=== PATIENT | male | born 1965 | race Caucasian/White ===

== ENCOUNTER 2024-07-31 14:02 | Emergency (ER) | payer MEDICARE, SELFPAY ==
[2024-07-31] VITALS (11 sets, daily range): BP systolic 149–161; BP diastolic 71–78; PULSE 72–80; RESP 16–18; TEMP 36.3–36.7; O2SAT 63–100
--- NOTE | ~2024-07-31 | CT_ITS ---
CT brain wo con Ordering provider: Bear Preciado MD History: 58 years Male with . Fall, Posterior head injury, Headache, Neck pain . Comparison: January 28, 2013 Technique: CT of the head without contrast. Radiation reduction technique utilized.The dose-length pr oduct was 756.67 mGy-cm. FINDINGS: BRAIN PARENCHYMA AND CSF SPACES: Mild leukoaraiosis and diffuse cortical atrophy. Mild atheromatous d isease. As No midline shift, mass effect or hemorrhage. The brain parenchyma and CSF spaces are othe rwise normal. VISUALIZED PARANASAL SINUSES: Bilateral frontal, maxillary and ethmoid sinus disease. Otherwise, Well aerated. MASTOIDS: Well aerated. BONES: The bones appear intact. SOFT TISSUES: Visualized nasopharynx is normal. Superficial soft tissues are normal. IMPRESSION: No acute intracranial findings. Reviewed, dictated and finalized at location A.
--- NOTE | ~2024-07-31 | CT_ITS ---
History: Fall with neck pain PROCEDURE: CT cervical spine without intravenous contrast. COMPARISON: None TECHNIQUE: Multiple contiguous axial images of the cervical spine were performed without the administration of i ntravenous contrast. DLP: 525 mGy-cm FINDINGS: Preservation of the normal curvature of the cervical spine is identified. Degenerative disease is identified with osteophyte formation and ossification of the posterior longit udinal ligament. No acute fractures are present. The bilateral lung apices are unremarkable. No soft tissue abnormality is present. The airway is patent. Impression: Mild degenerative disease, without acute fracture. Reviewed, dictated and finalized at location A. Impression: Mild degenerative disease, without acute fracture.
--- NOTE | ~2024-07-31 | XR_ITS ---
EXAMINATION: XR chest 1V portable 07/31/2024 15:08 INDICATION: Status post fall. Chest pain. PROCEDURE: AP portable chest COMPARISON: No prior studies for comparison. FINDINGS: The lungs are clear. Cardiomegaly. There are no pleural effusions. There is no pneumothora x suspected. IMPRESSION: 1: NO ACUTE CARDIOPULMONARY DISEASE. Reviewed, dictated and finalized at location A.
--- NOTE | 2024-07-31 14:23 | ECG_ITS ---
Test Date: 2024-07-31 14:39:56 Measurements Intervals [place] Rate: 75 P: 45 CA: 134 QRS: -78 QRSD: 164 T: 57 QT: 436 QTc: 489 Interpretive Statements SINUS RHYTHM RIGHT BUNDLE BRANCH BLOCK [120+ ms QRS DURATION, UPRIGHT V1, 40+ ms S IN I/aVL/V4/V5/V6] LEFT ANTERIOR FASCICULAR BLOCK [QRS AXIS <= -45, QR IN I, RS IN II] INFERIOR MYOCARDIAL INFARCTION , OF INDETERMINATE AGE [40+ ms Q WAVE AND/OR ST/T ABNORMALITY IN II/aVF] No previous ECG available for comparison Electronically Signed On 08-01-2024 11:46:49 CDT by Alecia Moon M.D.
--- NOTE | 2024-07-31 14:27 | ED_ITS ---
HPI - Fall General Chief Complaint: Fall Stated Complaint: fall Time Seen by Provider: 07/31/24 14:22 Source: patient and EMS Mode of arrival: EMS Limitations: no limitations History of Present Illness HPI Narrative: Patient is a 58-year-old male with obesity and lift assist was found on the floor at home after 8 hours per the patient and his family. Patient accidentally lost his balance using his walker and fell onto his back and hit his head going down to the floor. He is on Eliquis. No other injuries. No other complaints at this time. He normally pivots with his walker to get around. MD complaint: fall Onset (ago): hour(s) ( Eight) Fall from: standing Fall witnessed: no Place fall occurred: home Loss of consciousness: none Prolonged down time: yes and hour(s) ( 8) Symptoms prior to fall: none Context: tripped/slipped and history of frequent falls Location of injury: head and neck Severity: mild Severity scale (1-10): 1 Quality: dull Associated symptoms (after fall): unable to walk ( baseline) Related Data Allergies Allergy/AdvReac Type Severity Reaction Status Date / Time Penicillins Allergy Severe Anaphylaxis Verified 07/31/24 14:26 strawberry Allergy Severe Anaphylaxis Verified 07/31/24 14:26 Review of Systems 2 Review of Systems: All systems reviewed & are unremarkable except as noted in HPI and below Constitutional: Constitutional: Reports no additional constitutional complaints Eyes: Eyes: Reports no additional eye complaints ENT: Reports system reviewed and no additional complaints, except as documented Cardiovascular: Cardiovascular: Reports no additional cardiovascular complaints Respiratory: Respiratory: Reports no additional respiratory complaints Gastrointestinal: Gastrointestinal: Reports no additional gastrointestinal complaints Genitourinary: Genitourinary: Reports no additional male genitourinary complaints Musculoskeletal: Musculoskeletal: Reports no additional musculoskeletal complaints Integumentary/Breasts: Skin/Breast: Reports system reviewed and no additional complaints, except as docu Neurologic: Reports system reviewed and no additional complaints, except as documented Psychiatric: Psychiatric: Reports no additional psychiatric complaints Endocrine: Endocrine: Reports no additional endocrine complaints Hematologic/Lymphatic: Hematologic/Lymphatic: Reports no additional hematologic/lymphatic complaints Allergic/Immunologic: Allergic/Immunologic: Reports no additional allergic/immunologic complaints Exam 2 Const: General: healthy appearing Nutritional Appearance: well nourished and obese Orientation/consciousness: patient oriented x3 Other: patient presented to the emergency room via EMS with lots of urine on his body secondary to laying on the ground for 8 hours and soiling himself HENMT: Head: normal to inspection Ears: external ears normal F melanie/Nose/Sinus: Normal external nose present Face and sinus: normal facial exam Eyes: Conjunctivae: conjunctivae normal Pupils: Equal, round and reactive pupils present EOM: EOMs intact bilaterally Neck: Neck: normal visual inspection Chest: Chest palpation & inspection: normal inspection of the chest Resp: Effort & Inspection: normal respiratory effort and not labored A uscultation: clear to auscultation bilaterally and no crackles Cardio: Rate: regular rate Rhythm: regular rhythm Heart sounds: no murmurs GI: Inspection: non-distended GI Palp: Yes Soft to palpation and No Tenderness to palpation present (GI) Auscultation: normal bowel sounds : General: Yes bladder normal to palpation Back/Spine/Pelvis: Back: no CVA tenderness Skin: General skin exam: normal color Rashes: no rashes Wounds: no wounds Other: patient has large bilateral legs and ankles due to chronic edema and has bandages on them to stop pulling of fluids Neuro: General: patient oriented x3 Cranial nerves: Yes Nystagmus not present Speech: normal speech Extrem: General: normal to inspection Psych: Mental Status: mental status grossly normal Affect: normal affect Attitude: cooperative Course Vital Signs Vital signs: Vital Signs Temperature 36.3 C L 07/31/24 14:02 Pulse Rate 80 07/31/24 14:02 Respiratory Rate 18 07/31/24 14:02 Blood Pressure 160/71 H 07/31/24 14:02 Pulse Oximetry 100 07/31/24 14:02 Oxygen Delivery Room Air 07/31/24 14:02 Temperature 36.3 C L 07/31/24 14:02 Pulse Rate 76 07/31/24 15:15 Respiratory Rate 17 07/31/24 15:15 Blood Pressure 149/76 H 07/31/24 15:15 Pulse Oximetry 100 07/31/24 15:16 Oxygen Delivery Room Air 07/31/24 14:02 MDM - Fall MDM Narrative Medical decision making narrative: patient is a 58-year-old male with a ground level fall due to loss of balance here for evaluation per his family. He did hit his head on the way down to the floor and he is on Eliquis. We will check labs to include CPK and some CT scans for reassurance. Lab Data Attestation: I reviewed the patient's lab results. 07/31/24 14:36 07/31/24 14:36 Labs: Lab Results 07/31/24 07/31/24 Range/Units 14:26 14:36 WBC 10.6 (4.8-10.8) K/mm3 RBC 4.21 L (4.70-6.10) M/mm3 Hgb 12.7 L (14.0-18.0) g/dL Hct 38.1 L (40.0-54.0) % MCV 90.5 (78.0-102.0) fL MCH 30.2 (27.0-31.0) pg MCHC 33.3 (32-36) g/dL RDW 14.0 (11.6-14.4) % Plt Count 258 (150-420) K/mm3 MPV 10.0 (8.7-11.0) fl Immature Gran % (Auto) 0.7 H (0.0-0.0) % Neut % (Auto) 84.0 H (50.0-70.0) % Lymph % (Auto) 9.0 L (18.0-42.0) % Spalding % (Auto) 4.9 (2.0-11.0) % Eos % (Auto) 0.9 L (1.0-6.0) % Baso % (Auto) 0.5 (0.0-1.0) % Lymph # (Auto) 0.95 L (1.10-4.50) K/mm3 Spalding # (Auto) 0.52 (0.10-0.90) K/mm3 Eos # (Auto) 0.10 (0.02-0.50) K/mm3 Baso # (Auto) 0.05 (0.00-0.10) K/mm3 Abs Immat Gran (auto) 0.07 H (0.00-0.00) K/mm3 Absolute Neuts (auto) 8.92 H (1.70-7.20) K/mm3 Absolute Nucleated RBC 0.00 (0.00-0.00) K/mm3 Nucleated RBC % 0.0 (0-0.0) % Sodium 139 (136-145) mmol/L Potassium 4.2 (3.5-5.1) mmol/L Chloride 105 (98-108) mmol/L Carbon Dioxide 24 (21-32) mmol/L Anion Gap 10 (4-12) mmol/L BUN 25 H (7-18) mg/dL Creatinine 1.15 (0.70-1.30) mg/dL Estim Creat Clear Calc 109 ml/min Estimated GFR > 60 (59 - ) Glucose 232 H (70-99) mg/dL Calculated Osmolality 299 H (285-295) mOsm/kg Calcium 8.9 (8.5-10.1) mg/dL Magnesium 1.8 (1.8-2.4) mg/dL Total Bilirubin 0.4 (0.00-1.00) mg/dL AST < 10 L (15-37) U/L ALT 13 L (16-63) U/L Alkaline Phosphatase 98 (46-116) U/L Total Creatine Kinase 106 (39-308) U/L Troponin I 12.7 (0.00-60.4) ng/L Total Protein 8.1 (6.4-8.2) g/dL Albumin 3.5 (3.4-5.0) g/dL Urine Color Light yellow (Yellow) Urine Appearance Clear (Clear) Urine pH 6.0 (5.0-8.0) Ur Specific Garita 1.025 H (1.010-1.020) Urine Protein Negative (Negative) Urine Glucose (UA) 3+ H (Negative) Urine Ketones Negative (Negative) Ur Blood (Man) Negative (Negative) Urine Nitrate Negative (Negative) Urine Bilirubin Negative (Negative) Urine Urobilinogen 0.2 (0.2-1.0) mg/dL Leukocyte Esterase Rfl Negative (Negative) KWABENA/UL Imaging Data Attestation: I personally reviewed and interpreted this imaging study as follows: ECG Data EKG #1: Attestation: I personally reviewed and interpreted this ECG as follows: ECG completion date: 07/31/24 ECG completion time: 14:59 EKG Interpretation: normal rate, sinus rhythm, no ectopy, non-specific ST changes, widened QRS, RBBB and left axis Discharge Plan Discharge Clinical Impression: Fall, Head injury Patient Disposition: Home Condition: Stable Instructions: Head Injury (DC), Fall Prevention (ED) Patient Language: Grenadian Follow-up/Referrals: Erick Albert M.D. [Primary Care Provider] - Time of Disposition: 15:33
[2024-07-31 14:47] LABS: Basophils Absolute Auto 0.05 K/mm3 (0.00-0.10); Basophils Percent Auto 0.5 % (0.0-1.0); Eosinophils Percent Auto 0.9 % (1.0-6.0); Hematocrit 38.1 % (40.0-54.0); Hemoglobin 12.7 g/dL (14.0-18.0); Immature Granulocyte Absolute 0.07 K/mm3 (0.00-0.00); Immature Granulocyte Percent A 0.7 % (0.0-0.0); Lymphocytes Absolute Auto 0.95 K/mm3 (1.10-4.50); Mean Corpuscular HGB Conc 33.3 g/dL (32-36); Mean Corpuscular Hemoglobin 30.2 pg (27.0-31.0); Mean Corpuscular Volume 90.5 fL (78.0-102.0); Monocytes Absolute Auto 0.52 K/mm3 (0.10-0.90); Monocytes Percent Auto 4.9 % (2.0-11.0); Neutrophils Absolute Auto 8.92 K/mm3 (1.70-7.20); Platelet Count Result 258 K/mm3 (150-420); Red Blood Count 4.21 M/mm3 (4.70-6.10); White Blood Count 10.6 K/mm3 (4.8-10.8)
[2024-07-31 15:06] LABS: Alanine Aminotransferase 13 U/L (16-63); Albumin Level 3.5 g/dL (3.4-5.0); Alkaline Phosphatase 98 U/L (46-116); Anion Gap 10 mmol/L (4-12); Aspartate Amino Transferase < 10 U/L (15-37); Bilirubin,Total 0.4 mg/dL (0.00-1.00); Blood Urea Nitrogen 25 mg/dL (7-18); Calcium 8.9 mg/dL (8.5-10.1); Carbon Dioxide 24 mmol/L (21-32); Chloride 105 mmol/L (98-108); Creatine Kinase 106 U/L (39-308); Estimated CRCL calculation 109 ml/min; Estimated Glomerular Filt Rate > 60; Glucose 232 mg/dL (70-99); Osmolality Calculated 299 mOsm/kg (285-295); Potassium 4.2 mmol/L (3.5-5.1); Sodium 139 mmol/L (136-145); Total Protein 8.1 g/dL (6.4-8.2)
[2024-07-31 15:07] LABS: Magnesium 1.8 mg/dL (1.8-2.4); Troponin I 12.7 ng/L (0.00-60.4)
[2024-07-31 15:16] LABS: Add Urine Microscopic? NO; Appearance Urine Clear (Clear); Bilirubin Urine Negative (Negative); Blood Urine Negative (Negative); Color Urine Light Yellow (Yellow); Glucose Urine UA 3+ (Negative); Ketones Urine Negative (Negative); Leukocyte Esterase Ur Negative LEU/UL (Negative); Nitrate Urine Negative (Negative); Protein Urine Negative (Negative); Specific Grav Ur 1.025 (1.010-1.020); Urobilinogen Urine 0.2 mg/dL (0.2-1.0)
--- OUTSIDE RECORDS SUMMARY | 2024-08-01 14:22 | XMS_ITS | Encounter Summary ---
Author Organization [facility] Address [address] [place] [address] Phone Care Team Providers Care It Systems Analyst Name Role Phone Erick Albert MD Primary Care Provider [phone] Reason for Referral * Radiology Services (Routine) - Closed Specialty Diagnoses / Procedures Referred By Julissa jarrett Referred To Contact Radiology Diagnoses Abnormal brain MRI Procedures MRI C-SPINE W/WO CONTRAST Justin Mendieta MD Referral ID Status Reason Start Date Expiration Date Visits Re quested Visits Authorized [id number] Closed 04/11/2020 1 1 TRUCTION SUPERINTENDENT * Radiology Services (Routine) - Closed Specialty Diagnoses / Procedures Referred By Julissa jarrett Referred To Contact Radiology Diagnoses Abnormal brain MRI Procedures MRI BRAIN W/WO CONTRAST Justin Mendieta MD Referral ID Status Reason Start Date Expiration Date Visits Re quested Visits Authorized [id number] Closed 04/11/2020 1 1 TRUCTION SUPERINTENDENT Encounter Details Date Type Department Care Team (Latest Contact Info) Description 04/11/2020 Transcribe Orders [facility] Central Scheduling [address] [place] [address] Justin Mendieta MD Abnormal brain MRI (Primary Dx) Social History Tobacco Use Types Packs/Day Years Used Date Smoking Tobacco: Never Assessed Sex and Gender Information Value Date Recorded Sex Assigned at Not on file 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 Gender Identity Not on file Sexual Orientation Not on file documented as of this encounter Plan of Treatment Scheduled Orders Name Type Priority Associated Diagnoses Orde r Schedule MRI BRAIN W/WO CONTRAST Imaging Routine Abnormal brain MRI Expected: 04/11/2020, Expires: 04/11/2021 MRI C-SPINE W/WO CONTRAST Imaging Routine Abnormal brain MRI Expected: 04/11/2020, Expires: 04/11/2021 documented as of this encounter Visit Diagnoses Diagnosis Abnormal brain MRI- Primary Nonspecific (abnormal) findings on radiological and other examination of skull and head documented in this encounter Care Teams It Systems Analyst Relationship Specialty Start Date End Date Erick Albert MD [address] [place] [address] PCP - General Family Medicine 05/06/20 documented as of this encounter
--- OUTSIDE RECORDS SUMMARY | 2024-08-01 14:22 | XMS_ITS | Clinical Summary ---
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 Gender Identity Not on file Sexual Orientation Not on file Last Filed Vital Signs Vital Sign Reading Time Taken Comments Blood Pressure - - Pulse - - Temperature - - Respiratory Rate - - Oxygen Saturation - - Inhaled Oxygen Concentration - - Weight 215.5 kg (475 lb) 01/05/2021 12:27 PM CDT Height 180.3 cm (5' 11 ) 01/05/2021 12:27 PM CDT Body Mass Index 66.25 01/05/2021 12:27 PM CDT Plan of Treatment Health Maintenance Due Date Last Done Comments Hepatitis C Virus (HCV) Screening 1965 TdaP Immunization 1965 Colonoscopy 12/05/2011 Colorectal Cancer Screening 12/05/2011 Cologuard 2016 Immunochemical Fecal Occult Blood 2016 Pneumococcal Immunization (5 0+ years) (1 of 1 - PCV) 2016 Zoster Immunization (1 of 2) 2016 Influenza Immunization (#1) 2023 03/01/2017 SARS-COV-2 Immunization (3 - season) 2023 08/09/2020, 07/12/2020 Respiratory Syncytial Virus (RSV) Immunization (Adult) (1 - 1-dose 75+ series) 2041 Hepatitis B Immunization Completed 007, 06/05/2006, 04/11/2006 Meningococcal Immunization (ACWY) Aged Out No longer eligible b ased on patient's age to complete this topic Rotavirus Immunization Aged Out No lo nger eligible based on patient's age to complete this topic Insurance MEDICARE C AETNA Care Teams Gym Teacher Relationship Specialty Start Date End Date Erick Albert MD [facility] [place] [address] PCP - General Family Medicine 05/06/20
--- OUTSIDE RECORDS SUMMARY | 2024-08-01 14:22 | XMS_ITS ---
Author Organization [facility] Address [address] [place] [address] Care Team Providers Care Manual Control Auger Press Operator Name Role Phone JUAN MICHAELS Unavailable [phone] Erick Albert Unavailable Unavailable Encounters Encounter Location Date Provider Diagnosis [facility] [address] [place] [address] 10/23/2023 JUAN MICHAELS Plan Of Treatment No Information Progress Notes * CARLOS VIVIAN RDOB: [birth year] (58 yo M)Acc No.[id number]:10/23/2023 Patient: VIVIAN GARCIA Provider: Shmuel Michaels DPM :1965 A ge:57 Y S ex:Male Date:10/23/2023 Address:[address] Subjective: * Chief Complaints: * * Medical History: Objective: * Vitals: Assessment: Plan: * Treatment: * Billing Information: * Visit Code: * Procedure Codes: * Electronic signature of ANNALEE MICHAELS DPM on 08/01/2024 at 02:22 PM CDT Sign off status: Pending * Provider: Shmuel Michaels DPM Date: 10/23/2023 Generated for Zulay gutierrez/Bay/Arlen on: 08/01/2024 02:22 PM CDT
--- OUTSIDE RECORDS SUMMARY | 2024-08-01 14:22 | XMS_ITS | Encounter Summary ---
Author Organization [facility] Address [facility] [place] [address] Care Team Providers Care Tar And Ammonia Pump Operator Name Role Phone Erick Albert MD Primary Care Provider [phone] Phillip Goldman MD Unavailable Kesha Doyle INDUSTRIAL TRACTOR DRIVER Unavailable [phone] Donny Olsen DPM Unavailable [phone] Encounter Details Date Type Department Care Team (Late st Contact Info) Description 05/25/2019 Abstract [facility] [address] [place] [address] Abstract, Doc [facility] Social History Tobacco Use Types Packs/Day Years Used Date Smoking Tobacco: Never Smokeless Tobacco: Never Alcohol Use Standard Drinks/Week Comments No 0 (1 standard drink = 0.6 oz pur e alcohol) Sex and Gender Information Value Date Recorded Sex Assigned at Not on file Legal Sex Male 7:22 PM CDT Gender Identity Not on file Sexual Orientation Not on file Occupation Industry Job Start Date Job End Date unemployed Not on file Not on file Not on file documented as of this encounter Plan of Treatment Not on file documented as of this encounter Visit Diagnoses Not on filedocumented in this encounter Additional Health Concerns Infection Onset Date Last Indicated Resolved Time COVID-19 Rule Out 08/31/2020 08/31/2020 08/31/2020 12:40 AM CDT COVID-19 Rule Out 08/31/2020 08/31/2020 08/31/2020 5:11 PM CDT documented as of this encounter Care Teams Tar And Ammonia Pump Operator Relationship Specialty Start Date End Date Erick Albert MD [address] [place] [id number] PCP - General FAMILY PRACTICE 12/12/17 Phillip Goldman MD [address] [place] [address] Vascular/Ware Dresser INTERNAL MEDICINE 12/12/17 Kesha Doyle, INDUSTRIAL TRACTOR DRIVER [facility] [place] [address] Nurse Practitioner Family 05/22/19 Donny Olsen DPM [address] [place] [address] Surgeon PODIATRY 07/27/19 documented as of this encounter
--- OUTSIDE RECORDS SUMMARY | 2024-08-01 14:22 | XMS_ITS ---
Author Organization [facility] Address [address] [place] [address] Care Team Providers Care Director Agricultural Services Name Role Phone JUAN MICHAELS Unavailable [phone] Erick Albert Unavailable Unavailable Encounters Encounter Location Date Provider Diagnosis [facility] [address] [place] [address] 06/12/2024 JUAN MICHAELS Plan Of Treatment No Information Progress Notes * CARLOS VIVIAN RDOB: [birth year] (58 yo M)Acc No.[id number]:06/12/2024 Patient: VIVIAN GARCIA Provider: Shmuel Michaels DPM :1965 A ge:58 Y S ex:Male Date:06/12/2024 Address:[address] Subjective: * Chief Complaints: * * Medical History: Objective: * Vitals: Assessment: Plan: * Treatment: * Billing Information: * Visit Code: * Procedure Codes: * Electronic signature of ANNALEE MICHAELS DPM on 08/01/2024 at 02:22 PM CDT Sign off status: Pending * Provider: Shmuel Michaels DPM Date: 06/12/2024 Generated for Zulay gutierrez/Bay/Arlen on: 08/01/2024 02:22 PM CDT
--- OUTSIDE RECORDS SUMMARY | 2024-08-01 14:22 | XMS_ITS | Clinical Summary ---
Author Organization Unknown Care Team Providers Care Sugar Reprocess Operator Head Name Role Phone KIERA SELLERS, AB Unavailable Unavailable JOSE C ARREDONDO COUNSELOR, DAHLIA Unavailable Unavailable AC REGISTERED NURSE, ABBEY Unavailable Unavailable IRIS REGISTERED NURSE, ALICIA Unavailable Unavailable Payers Payer Name Policy Type Policy Number Effective Date Expira tion Date [employer] MEDICARE ADVANTAGE - EPISODIC Problems Condition Name Condition Details Condition Category Status Onset Date Resolution Date Last Treatment Date Treating Clinician Comments TYPE 2 DIABETES MELLITUS W DIABETIC CHRONIC KIDNEY DISEASE Active 04-01 00:00: 00 HYPERTENSIVE CHRONIC KIDNEY DISEASE W STG 1-4/UNSP CHR KDNY Active 2023-04 00:00: 00 CHRONIC KIDNEY DISEASE, UNSPECIFIED Active 04-01 00:00: 00 VENTRICULAR TACHYCARDIA, UNSPECIFIED Active 04-01 00:00: 00 DEPRESSION, UNSPECIFIED Active 04-01 00:00: 00 OLD MYOCARDIAL INFARCTION Active 04-01 00:00: 00 CHRONIC OBSTRUCTIVE PULMONARY DISEASE, UNSPECIFIED Active 04-01 00:00: 00 OBSTRUCTIVE SLEEP APNEA (ADULT) (PEDIATRIC) Active 04-01 00:00: 00 TESTICULAR HYPOFUNCTION Active 04-01 00:00: 00 HYPERLIPIDEM IA, UNSPECIFIED Active 04-01 00:00: 00 ACTIVATED PROTEIN C RESISTANCE Active 04-01 00:00: 00 UNSPECIFIED OSTEOARTHRIT IS, UNSPECIFIED SITE Active 04-01 00:00: 00 MORBID (SEVERE) OBESITY DUE TO EXCESS CALORIES Active 04-01 00:00: 00 BODY MASS INDEX [BMI] 50.0-59.9, ADULT Active 04-01 00:00: 00 GASTRO-ESOPH AGEAL REFLUX DISEASE WITHOUT ESOPHAGITIS Active 04-01 00:00: 00 HYPOMAGNESEM IA Active 04-01 00:00: 00 OTHER PULMONARY EMBOLISM WITH ACUTE COR PULMONALE Active 04-01 00:00: 00 PERSONAL HISTORY OF OTHER VENOUS THROMBOSIS AND EMBOLISM Active 04-01 00:00: 00 CUSTODIAL (CURRENT) USE OF NON-STEROIDA L NON-INFLAM (NSAID) Active 04-01 00:00: 00 CUSTODIAL (CURRENT) USE OF ANTICOAGULAN TS Active 04-01 00:00: 00 CUSTODIAL (CURRENT) USE OF INSULIN Active 04-01 00:00: 00 INTERVENTIONAL NEURORADIOLOGIST (CURRENT) USE OF ORAL HYPOGLYCEMIC DRUGS Active 04-01 00:00: 00 LNG TRM (CRNT) USE INJECTABLE NON-INSULIN ANTIDIABETIC DRUGS Active 04-01 00:00: 00 HISTORY OF FALLING Active 04-01 00:00: 00 Allergies, Adverse Reactions, Alerts Allergy Name Allergy Type Status Severity Reaction(s) Onset Date Inactive Date Treating Clinician Comments PENICILLINS Propensity to adverse reactions Active 2023-04 14:46: 20 STRAWBERRY Propensity to adverse reactions Active 2023-04 14:46: 29 Medications Ordered Medication Name Filled Medication Name Start Date Stop Date Current Medication? Ordering Clinician Indication Dosage Frequency Signature (SIG) Comments Components atorvastati n 80 mg tablet 2023-04 00:00: 00 Yes [id number] HIGH CHOLESTEROL 1 tablet AT BEDTIME 1 tablet AT BEDTIME (route: oral) Med Classific ation: Cardiovas cular Therapy Agents buspirone 10 mg tablet 2023-04 00:00: 00 06-29 23:59 :00 No [id number] MOOD 2 tablet TWICE DAILY 2 tablet TWICE DAILY (route: oral) Med Classific ation: Central Nervous System Agents Eliquis 5 mg tablet 2023-04 00:00: 00 Yes [id number] BLOOD CLOT PREVENTION 1 tablet TWICE DAILY 1 tablet TWICE DAILY (route: oral) Med Classific ation: Hematolog ical Agents insulin lispro (U-100) 100 unit/mL subcutaneou s pen 2023-04 00:00: 00 06-29 23:59 :00 No [id number] DIABETES MELLITUS 70 unit TWICE DAILY 70 unit TWICE DAILY (route: subcutaneo us) Med Classific ation: Endocrine lisinopril 10 mg tablet 2023-04 00:00: 00 06-29 23:59 :00 No [id number] HIGH BLOOD PRESSURE 1 tablet ONCE DAILY 1 tablet ONCE DAILY (route: oral) Med Classific ation: Cardiovas cular Therapy Agents magnesium 250 mg tablet 2023-04 00:00: 00 Yes [id number] SUPPLEMENT 1 tablet ONCE DAILY 1 tablet ONCE DAILY (route: oral) Med Classific ation: Electroly te Balance-N utritiona l Products metformin 1,000 mg tablet 2023-04 00:00: 00 Yes [id number] DIABETES MELLTUS 1 tablet TWICE DAILY 1 tablet TWICE DAILY (route: oral) Med Classific ation: Endocrine Nystop 100,000 unit/gram topical powder 2023-04 00:00: 00 Yes [id number] GAULDING Per instruc tions TWICE DAILY Per instructio ns TWICE DAILY (route: topical) Med Classific ation: Dermatolo gical paroxetine 20 mg tablet 2023-04 00:00: 00 Yes [id number] MOOD 1 tablet ONCE DAILY 1 tablet ONCE DAILY (route: oral) Med Classific ation: Central Nervous System Agents Pepcid 20 mg tablet 2023-04 00:00: 00 Yes [id number] HEART BURN 1 tablet ONCE DAILY 1 tablet ONCE DAILY (route: oral) Med Classific ation: Gastroint estinal Therapy Agents topiramate 25 mg tablet 2023-04 00:00: 00 Yes [id number] HEADACHES 4 tablet TWICE DAILY 4 tablet TWICE DAILY (route: oral) Med Classific ation: Central Nervous System Agents venlafaxine 37.5 mg tablet 2023-04 00:00: 00 Yes [id number] MOOD 1 tablet ONCE DAILY 1 tablet ONCE DAILY (route: oral) Med Classific ation: Central Nervous System Agents Vitamin D2 1,250 mcg (50,000 unit) capsule 2023-04 00:00: 00 Yes [id number] VITAMIN D DEFICIENCY 1 capsule ONCE DAILY 1 capsule ONCE DAILY (route: oral) Med Classific ation: Electroly te Balance-N utritiona l Products amlodipine 2.5 mg tablet 2-11 00:00: 00 06-29 23:59 :00 No [id number] HYPERTENSIO N 1 tablet ONCE DAILY 1 tablet ONCE DAILY (route: oral) Med Classific ation: Cardiovas cular Therapy Agents cephalexin 500 mg capsule 2-26 00:00: 00 06-03 23:59 :00 No [id number] LEG INFECTION 2 capsule 4 TIMES DAILY 2 capsule 4 TIMES DAILY (route: oral) Med Classific ation: Anti-Infe ctive Agents amlodipine 5 mg tablet 07-01 00:00: 00 Yes [id number] HIGH BLOOD PRESSURE 1 tablet ONCE DAILY 1 tablet ONCE DAILY (route: oral) Med Classific ation: Cardiovas cular Therapy Agents buspirone 30 mg tablet 07-01 00:00: 00 Yes [id number] DEPRESSION 1 tablet TWICE DAILY 1 tablet TWICE DAILY (route: oral) Med Classific ation: Central Nervous System Agents cyclobenzap rine 10 mg tablet 07-01 00:00: 00 Yes [id number] MUSCLE SPASMS 1 tablet 3 TIMES DAILY 1 tablet 3 TIMES DAILY (route: oral) Med Classific ation: Locomotor System lisinopril 20 mg tablet 07-01 00:00: 00 Yes [id number] HIGH BLOOD PRESSURE 1 tablet ONCE DAILY 1 tablet ONCE DAILY (route: oral) Med Classific ation: Cardiovas cular Therapy Agents meloxicam 15 mg tablet 07-01 00:00: 00 Yes [id number] JOINT PAIN 1 tablet ONCE DAILY 1 tablet ONCE DAILY (route: oral) Med Classific ation: Analgesic , Anti-infl ammatory or Antipyret ic Novolog FlexPen U-100 Insulin aspart 100 unit/mL (3 mL) subcutaneou s 07-01 00:00: 00 Yes [id number] DIABETES 70 unit TWICE DAILY 70 unit TWICE DAILY (route: subcutaneo us) Med Classific ation: Endocrine Ozempic 0.25 mg or 0.5 mg (2 mg/3 mL) subcutaneou s pen injector 07-01 00:00: 00 Yes [id number] DIABETES Per instruc tions WEEKLY Per instructio ns WEEKLY (route: subcutaneo us) Med Classific ation: Endocrine Vital Signs Vital Name Observation Time Observation Value Commen ts Temperature 2024-07-27 10:43:00.000 97.9 [degF] Temperature 2024-07-16 14:53:00.000 97.7 [degF] Temperature 2024-07-07 09:13:00.000 98 [degF] Pulse 2024-07-27 10:43:00.000 77 /min Pulse 2024-07-16 14:53:00.000 70 /min Pulse 2024-07-07 09:13:00.000 73 /min O2 Saturation (%) 2024-07-27 10:43:00.000 99 % O2 Saturation (%) 2024-07-16 14:53:00.000 97 % O2 Saturation (%) 2024-07-07 09:13:00.000 97 % Respirations 2024-07-27 10:43:00.000 20 /min Respirations 2024-07-16 14:53:00.000 20 /min Respirations 2024-07-07 09:13:00.000 22 /min Weight (lbs) 2024-07-27 10:43:00.000 419 [lb_av] Systolic Blood Pressure 2024-07-27 10:43:00.000 130 mm [Hg] Systolic Blood Pressure 2024-07-16 14:53:00.000 139 mm [Hg] Systolic Blood Pressure 2024-07-07 09:13:00.000 137 mm [Hg] Diastolic Blood Pressure 2024-07-27 10:43:00.000 80 mm [Hg] Diastolic Blood Pressure 2024-07-16 14:53:00.000 70 mm [Hg] Diastolic Blood Pressure 2024-07-07 09:13:00.000 82 mm [Hg] Plan of Treatment Planned Activity Planned Date Details Comments Future Scheduled Test HOME HEALT H NURSE TO INSTRUCT ON CHRONIC KIDNEY DISEASE ITS COMPLICATIONS, AND WHEN TO CONTACT THE AGENCY, PHYSICIAN OR 911 [code = HOME HEALTH NURSE TO INSTRUCT ON CHRONIC KIDNEY DISEASE ITS COMPLICATIONS, AND WHEN TO CONTACT THE AGENCY, PHYSICIAN OR 911] Future Scheduled Test [facility] TIFYING PHYSICIAN, ASSOCIATED PHYSICIAN, NPP OR PA WITHIN THE SAME GROUP MAY APPROVE AND SIGN THE ORDER (ON ANY PAGE) ATTESTING THAT THE COMPREHENSIVE OUTCOME ASSESSMENTS, EVALUATIONS, AND HOME HEALTH CERTIFICATION PLANS SUPPORT HOMEBOUND STATUS. HOME HEALTH WEB-PORTAL DOCUMENTATION ACCESSED BY THE PHYSICIAN MUST BE INCORPORATED INTO THE MEDICAL RECORD TO CORROBORATE THE PHYSICIAN, NPP, OR PAS F2F ENCOUNTER TO SUPPORT ELIGIBILITY FOR HOME HEALTH SERVICES. [code = THE CERTIFYING PHYSICIAN, ASSOCIATED PHYSICIAN, NPP OR PA WITHIN THE SAME GROUP MAY APPROVE AND SIGN THE ORDER (ON ANY PAGE) ATTESTING THAT THE COMPREHENSIVE OUTCOME ASSESSMENTS, EVALUATIONS, AND HOME HEALTH CERTIFICATION PLANS SUPPORT HOMEBOUND STATUS. HOME HEALTH WEB-PORTAL DOCUMENTATION ACCESSED BY THE PHYSICIAN MUST BE INCORPORATED INTO THE MEDICAL RECORD TO CORROBORATE THE PHYSICIAN, NPP, OR PAS F2F ENCOUNTER TO SUPPORT ELIGIBILITY FOR HOME HEALTH SERVICES.] Future Scheduled Test EACH ORDER ED IN-HOME OR TELEHEALTH VISIT, THE SKILLED NURSE WILL CONDUCT A COMPREHENSIVE ASSESSMENT INCLUDING VITAL SIGNS, PAIN, SAFETY, MENTAL/COGNITIVE/PSYCHOSOCIAL STATUS, MED MANAGEMENT, NUTRITION, SKIN INTEGRITY, PRESSURE ULCER PREVENTION, AND PATIENT/CAREGIVER ABILITY TO SUPPORT ORDERED CARE. SKILLED NURSE WILL INSTRUCT ON DISEASE PROCESS, MED MGMT., FALL PREVENTION AND SAFETY, INFECTION CONTROL AND PREVENTION, WARNING SIGNS, ADDRESS RESULTS OUTSIDE OF ORDERED PARAMETERS LISTED ON CARE PLAN, AND COORDINATE DISCHARGE WITH THE TREATING PROVIDER. MAY ACCEPT ORDERS FROM THE FOLLOWING PROVIDER(S) WHO WILL BE CONSULTING ON THE CERTIFIED CARE PLAN: DR QURESHI [code = EACH ORDERED IN-HOME OR TELEHEALTH VISIT, THE SKILLED NURSE WILL CONDUCT A COMPREHENSIVE ASSESSMENT INCLUDING VITAL SIGNS, PAIN, SAFETY, MENTAL/COGNITIVE/PSYCHOSOCIAL STATUS, MED MANAGEMENT, NUTRITION, SKIN INTEGRITY, PRESSURE ULCER PREVENTION, AND PATIENT/CAREGIVER ABILITY TO SUPPORT ORDERED CARE. SKILLED NURSE WILL INSTRUCT ON DISEASE PROCESS, MED MGMT., FALL PREVENTION AND SAFETY, INFECTION CONTROL AND PREVENTION, WARNING SIGNS, ADDRESS RESULTS OUTSIDE OF ORDERED PARAMETERS LISTED ON CARE PLAN, AND COORDINATE DISCHARGE WITH THE TREATING PROVIDER. MAY ACCEPT ORDERS FROM THE FOLLOWING PROVIDER(S) WHO WILL BE CONSULTING ON THE CERTIFIED CARE PLAN: DR QURESHI] Future Scheduled Test HOME HEALT H NURSE WILL INSTRUCT AND VERIFY APPROPRIATE STEPS ON HOW THE PATIENT CHECKS OWN BLOOD GLUCOSE AND IMPORTANCE TO TRACK BLOOD RESULTS ON A DAILY LOG OR NOTEBOOK TO MONITOR TRENDS. PATIENT/CAREGIVER OR HOME HEALTH RN WILL PERFORM BLOOD GLUCOSE CHECKS. BLOOD GLUCOSE MONITORING WILL OCCUR 3-4 TIMES PER DAY. [code = HOME HEALTH NURSE WILL INSTRUCT AND VERIFY APPROPRIATE STEPS ON HOW THE PATIENT CHECKS OWN BLOOD GLUCOSE AND IMPORTANCE TO TRACK BLOOD RESULTS ON A DAILY LOG OR NOTEBOOK TO MONITOR TRENDS. PATIENT/CAREGIVER OR HOME HEALTH RN WILL PERFORM BLOOD GLUCOSE CHECKS. BLOOD GLUCOSE MONITORING WILL OCCUR 3-4 TIMES PER DAY.] [facility] WILL INSTRUCT AND VERIFY APPROPRIATE STEPS ON HOW THE PATIENT ADMINISTERS INSULIN INJECTIONS USING AN INJECTION PEN AND IMPORTANCE IN SITE SELECTION AND SYRINGE DISPOSAL. PATIENT/CAREGIVER WILL ADMINISTER INSULIN INJECTIONS USING AN INJECTION PEN PRESCRIBED BY THE PHYSICIAN. [code = HOME HEALTH NURSE WILL INSTRUCT AND VERIFY APPROPRIATE STEPS ON HOW THE PATIENT ADMINISTERS INSULIN INJECTIONS USING AN INJECTION PEN AND IMPORTANCE IN SITE SELECTION AND SYRINGE DISPOSAL. PATIENT/CAREGIVER WILL ADMINISTER INSULIN INJECTIONS USING AN INJECTION PEN PRESCRIBED BY THE PHYSICIAN.] Future Scheduled [facility] WILL INSTRUCT PATIENT/CAREGIVER ON TYPE 2 DIABETES DISEASE PROCESS, HOW TO CREATE A DIABETIC TOOLKIT TO MANAGE INVENTORY OF SUPPLIES, HOW TO PLAN FOR A SICK-DAY, AND WARNING SIGNS WHEN THE PATIENT EXPERIENCES LOW BLOOD SUGAR. [code = HOME HEALTH NURSE WILL INSTRUCT PATIENT/CAREGIVER ON TYPE 2 DIABETES DISEASE PROCESS, HOW TO CREATE A DIABETIC TOOLKIT TO MANAGE INVENTORY OF SUPPLIES, HOW TO PLAN FOR A SICK-DAY, AND WARNING SIGNS WHEN THE PATIENT EXPERIENCES LOW BLOOD SUGAR.] Future Scheduled [facility] WILL ASSESS FOR COMPLICATIONS RELATED TO ANTICOAGULATION USE AND INSTRUCT PATIENT/CAREGIVER ABOUT PRECAUTIONS TO FOLLOW AND SIGNS/SYMPTOMS TO REPORT. [code = HOME HEALTH NURSE WILL ASSESS FOR COMPLICATIONS RELATED TO ANTICOAGULATION USE AND INSTRUCT PATIENT/CAREGIVER ABOUT PRECAUTIONS TO FOLLOW AND SIGNS/SYMPTOMS TO REPORT.] Future Scheduled Test [facility] WILL ASSESS FOR COMPLICATIONS RELATED TO ANEMIA AND INSTRUCT PATIENT/CAREGIVER ABOUT CAUSES, PRESCRIBED TREATMENT, AND SIGNS/SYMPTOMS TO REPORT. [code = HOME HEALTH NURSE WILL ASSESS FOR COMPLICATIONS RELATED TO ANEMIA AND INSTRUCT PATIENT/CAREGIVER ABOUT CAUSES, PRESCRIBED TREATMENT, AND SIGNS/SYMPTOMS TO REPORT.] Future Scheduled Test SKILLED NU RSE TO OBSERVE AND ASSESS PATIENT WITH GENERALIZED DEPRESSION AND TEACH DEPRESSIVE SYMPTOMS. [code = SKILLED NURSE TO OBSERVE AND ASSESS PATIENT WITH GENERALIZED DEPRESSION AND TEACH DEPRESSIVE SYMPTOMS.] Future Scheduled Test [facility] WILL INSTRUCT ABOUT COPD, APPROPRIATE BREATHING TECHNIQUES, STRATEGIES TO MANAGE COPD TO PREVENT EXACERBATIONS, STRATEGIES TO PROMOTE SLEEP, USE OF A COPD ACTION PLAN, AND WARNING SIGNS TO CALL THE AGENCY, TREATING PROVIDER, OR 911. [code = HOME HEALTH NURSE WILL INSTRUCT ABOUT COPD, APPROPRIATE BREATHING TECHNIQUES, STRATEGIES TO MANAGE COPD TO PREVENT EXACERBATIONS, STRATEGIES TO PROMOTE SLEEP, USE OF A COPD ACTION PLAN, AND WARNING SIGNS TO CALL THE AGENCY, TREATING PROVIDER, OR 911.] Future Scheduled Test SKILLED NU RSE TO INSTRUCT PATIENT/CAREGIVER ON WHAT IS HYPERTENSION, HOW TO CHECK HIS/HER BLOOD PRESSURE, AND STRATEGIES TO USE TO CONTROL BLOOD PRESSURE SUCH MONITORING BP, MANAGING BLOOD GLUCOSE RESULTS TO AN ACCEPTABLE RANGE, MONITORING WEIGHTS, ENGAGING IN PHYSICAL ACTIVITY AIMING FOR 150 MINUTES SPREAD THROUGHOUT THE WEEK. [code = SKILLED NURSE TO INSTRUCT PATIENT/CAREGIVER ON WHAT IS HYPERTENSION, HOW TO CHECK HIS/HER BLOOD PRESSURE, AND STRATEGIES TO USE TO CONTROL BLOOD PRESSURE SUCH MONITORING BP, MANAGING BLOOD GLUCOSE RESULTS TO AN ACCEPTABLE RANGE, MONITORING WEIGHTS, ENGAGING IN PHYSICAL ACTIVITY AIMING FOR 150 MINUTES SPREAD THROUGHOUT THE WEEK.] Goal 2024-04-27 Patient Goal - 1 05/04/23 SOC: TO STAY OUT OF THE HOSPITAL Goal 2024-06-29 Patient Goal - 1 05/04/23 SOC: TO STAY OUT OF THE HOSPITAL 04-27-24 RECERT: TO STAY OUT OF THE HOSPITAL Goal Patient Goal - 1 05/04/23 SOC: TO STAY OUT OF THE HOSPITAL 04-27-24 RECERT: TO STAY OUT OF THE HOSPITAL 06/29/24 RECERT:TO STAY OUT OF THE HOSPITAL AND START TAKING WALKS OUTSIDE Goal Provider Goal - PATIENT/CAREGIVER WILL INDEPENDENTLY VERBALIZE THE DEFINITIONS OF CKD, COMPLICATIONS, AND TREATMENTS OF THE DISEASE BY. PATIENT/CAREGIVER WILL INDEPENDENTLY VERBALIZE SYMPTOMS TO REPORT TO THE PHYSICIAN BY THE END OF HOME HEALTH SERVICES. Goal Provider Goal - A PLAN OF CARE WILL BE ESTABLISHED THAT MEETS ALL PATIENT'S ASSISTED NEEDS AND COUNTER SIGNED BY PHYSICIAN. Goal Provider Goal - PATIENT WILL BE FREE OF FALLS AND HOSPITALIZATIONS THROUGHOUT EPISODE OF CARE. PATIENT/CAREGIVER WILL UNDERSTAND AND ADHERE TO ORDERED DIET. PATIENT/CAREGIVER WILL INDEPENDENTLY MANAGE MEDICATIONS, UNDERSTAND ANY CHANGES, SIDE EFFECTS TO REPORT BY DISCHARGE. PATIENT WILL BE FREE OF INFECTION AND UNDERSTAND MEASURES OF PREVENTION. PATIENT/CAREGIVER WILL COLLABORATE WITH SKILLED NURSE TO DEVELOP POC AT SOC AND ON AN ONGOING BASIS UPDATES ARE NEEDED. UNDERSTAND PROGRESS MADE/DISCHARGE PLANNING. ADDITIONAL ORDERS WILL BE RECEIVED FROM ALTERNATE PHYSICIANS IN A TIMELY MANNER. Goal Provider Goal - PATIENT/CAREGIVER WILL DEMONSTRATE PROPER TECHNIQUE WHEN CHECKING OWN BLOOD GLUCOSE, DEMONSTRATES ADHERES TO WRITING DOWN RESULTS USING A LOGBOOK, FOLLOWS THE PRESCRIBED FREQUENCY OF BLOOD SUGAR CHECKS PRIOR TO DISCHARGING FROM HOME HEALTH SERVICES. Goal Provider Goal - PATIENT/CAREGIVER WILL INDEPENDENTLY DEMONSTRATE PROPER TECHNIQUE WHEN ADMINISTERING INSULIN INJECTIONS USING AN INJECTION PEN. PATIENT/CAREGIVER WILL VERBALIZE UNDERSTANDING OF APPROPRIATE DISPOSAL OF SYRINGES BY THE END OF HOME HEALTH SERVICES. Goal Provider Goal - PATIENT/CAREGIVER WILL VERBALIZE UNDERSTANDING OF TYPE 2 DIABETES AND THE IMPORTANCE OF MANAGING THE BLOOD SUGAR WITHIN THE EXPECTED RANGE. PATIENT/CAREGIVER WILL ESTABLISH A DIABETIC TOOLKIT AND A SICK-DAY PLAN TO PREPARE FOR POTENTIAL CHANGES WITH BLOOD SUGARS RANGES. PATIENT/CAREGIVER WILL VERBALIZE WARNING SIGNS OF LOW BLOOD SUGAR AND WHAT ACTIONS TO TAKE. Goal Provider Goal - PATIENT/CAREGIVER WILL VERBALIZE UNDERSTANDING OF ANTICOAGULATION COMPLICATIONS TO REPORT AND PRECAUTIONS TO FOLLOW BY END OF HOME HEALTH SERVICES. Goal Provider Goal - PATIENT/CAREGIVER WILL VERBALIZE UNDERSTANDING OF THE CAUSES OF ANEMIA, SIGNS/SYMPTOMS TO REPORT, AND ADHERENCE TO PRESCRIBED TREATMENT BY END OF HOME HEALTH SERVICES. Goal Provider Goal - PATIENT/CAREGIVER WILL VERBALIZE UNDERSTANDING OF THE CONTRIBUTING FACTORS AND SYMPTOMS OF DEPRESSION. Goal Provider Goal - PATIENT/CAREGIVER WILL DEMONSTRATE WILLINGNESS TO COLLABORATE AND CREATE A COPD ACTION PLAN, VERBALIZE UNDERSTANDING OF STRATEGIES TO PREVENT EXACERBATIONS, AND VERBALIZE WARNING SIGNS AND WHEN TO CONTACT THE TREATING PROVIDER OR 911 UPON THE END OF HOME HEALTH SERVICES. Goal Provider Goal - PATIENT/CAREGIVER WILL INDEPENDENTLY DEMONSTRATE HOW TO CHECK HIS/HER OWN BP AND VERBALIZE WHAT STRATEGIES CAN ASSIST TO CONTROL BLOOD PRESSURE. Progress Notes Progress Notes <paragraph>[Visit Date: 2024 by GLENYS NELSON REGISTERED NURSE]:</paragraph><paragraph>PTNT SITTING IN RECLINER IN LIVING ROOM UPON ARRIVAL WITH FEET ELEVATED. PTNT IS BEING SEEN FOR DM WITH DIABETIC CKD. PTNT STATES HE SEEN DR QURESHI YESTERDAY AND THEY ARE GOING TO INCREASE HIS OZEMPIC TO THE NEXT INCREASED DOSE BUT HE HAS TO GET THE MEDICAITON FROM THE PHARMACY. MED LIST WILL BE UPDATED ONCE PTNT HAS STARTED NEW DOSE. PTNT REPORTS THAT HAS HIS BEEN RUNNING 90-240. DENIES ANY S/S 0F HYPO/HYPERGLYEMIA. RUBINA BS THIS AM WAS 128. INSTRUCTED ON S/S OF HYPO/HYPERGLEYCEMIA. INTRUCTED ON IMPROTANCE OF FOLLOWING A DIABETIC DIET TO PROMOTE THERAPUTIC RANGE OF BS READINGS. URINATING WNL AND BOWELS MOVING. PTNT REPORTS A GOOD APPETITE AND EATS MEALS FROM HIS SISTERS RESTURANT. DENIES ANY OPEN AREAS AND HE HAS BEEN USING LEG PUMPS ORDERED. PTNT ALSO KEEPS HIS LEGS WRAPPED. INSTRUCTED ON FALL AND SAFETY PREVENTION, PAIN MANAGEMENT, PU PREVENTION, PROPER HYGIENE AND GOOD SKIN CARE, S/S OF HYPER/HYPOTENSION, DIAHCARGE PLANNING, AND ECP. PTNT VOICED UNDERSTANDING TO ALL TOPICS</paragraph> Encounters Start Date/Time End Date/Time Encounter Type Admission Type Attending [facility] Facility Care Department Encounter ID Discharge Date Discharge Status Discharge Condition Discharge Reason Percent Goals Met 2024-03-03 00:00:00 2024-08-29 00:00:00 [facility] [id number]
--- OUTSIDE RECORDS SUMMARY | 2024-08-01 14:22 | XMS_ITS ---
Author Organization [employer] [facility] Address [address] [place] [address] Care Team Providers Care Scrap Baler Name Role Phone JUAN MICHAELS Unavailable [phone] Erick Albert Unavailable Unavailable REASON FOR VISIT [facility] [place] Medications Medication SIG (Take, Route, Frequency, Duration) Notes Start Date End Date Status Omeprazole for -2 *Pick strength-f orm from [employer] for eRX* 07/09/2019 Active Trulicity for -2 *Pick strength-f orm from [employer] for eRX* 07/09/2019 Active Lisinopril for -2 *Pick strength-f orm from [employer] for eRX* 07/09/2019 Active Topiramate for -2 *Pick strength-f orm from [employer] for eRX* 07/09/2019 Active Humatin for -2 *Reorder from [employer] for eRx and Interaction Alerts* 07/09/2019 Active Meloxicam for -2 *Pick strength-f orm from [employer] for eRX* 07/09/2019 Active ATORVASTATIN for -2 *Reorder from [facility] for eRx and Interaction Alerts* 07/09/2019 Active PARoxetine HCl for -2 *Pick strength-f orm from [employer] for eRX* 07/09/2019 Active Furosemide for -2 *Pick strength-f orm from [employer] for eRX* 07/09/2019 Active BUSPIRONE for -2 *Reorder from [facility] for eRx and Interaction Alerts* 07/09/2019 Active CYCLOBENZAPRINE for -2 *Reorder from [employer] for eRx and Interaction Alerts* 07/09/2019 Active TRAMADOL for -2 *Reorder from [employer] for eRx and Interaction Alerts* 07/09/2019 Active WARFARIN for -2 *Reorder from [facility] for eRx and Interaction Alerts* 07/09/2019 Active Metformin for -2 *Reorder from [employer] for eRx and Interaction Alerts* 07/09/2019 Active Problems Problem Type SNOMED Code ICD Code Onset Dates Problem Status W/U Status Risk Notes Problem 215005299 Diabetic peripheral neuropathy (E11.42) Active confirmed Vital Signs Blood pressure systolic 172 mm Hg 07/28/19 25 Blood pressure diastolic 95 mm Hg 025 Heart Rate 97 /min 07/27/2024 Height 71 in 07/27/2024 Weight 444 lbs 07/27/2024 BMI 61.92 kg/m2 07/27/2024 Height-cm 180.34 cm 07/27/2024 Weight-kg 201.4 kg 07/27/2024 Encounters Encounter Location Date Provider Diagnosis [address] [id number] 07/27/2024 JUAN XENIA Nail dystrophy L60.3 ; Diabetic peripheral neuropathy E11.42 ; Tinea unguium B35.1 ; Corns and callosities L84 and Ulcer of left foot with fat layer exposed L97.522 Assessments Encounter Date Diagnosis (ICD Code) Assessment Notes Treatment Notes Treatment Clinical Notes Section Notes 07/27/2024 Nail dystrophy (ICD-10 - L60.3) 07/27/2024 Diabetic peripheral neuropathy (ICD-10 - E11.42) We discussed preventative foot care. We discussed preventative foot hygiene. We instructed the patient on how to care for their feet, and to contact the office if any wounds develop or signs of infection arise. Trimmed 6 nails, without incident. The nails were debrided of all fungal material and debris. Debridement included a reduction in bulk of the nail by use of a sharp fingernail sculptor and/or rotary instrument. Reason for debridement include relief of pain, treatment of infection, temporary removal of an anatomic deformity such as onychauxis or onychocryptosis, exposure of subungual conditions for the purpose of treatment as well as diagnosis, and/or as a prophylactic measure to prevent further problems, such as subungual ulceration in an insensate patient with onychauxis. Antiseptic was applied. Debrided 2 nails without incident. The hyperkeratotic lesions were sharply pared. The callus or corns pared are not associated within the toenail complex and are proximal to the interphalangeal joint or are proximal to the distal phalanx. The services performed were on separate sites and not located on a toe. Antiseptic was applied. Pared one hyperkeratotic lesion that is on a separate site of service and not located on a toe. 07/27/2024 Tinea unguium (ICD-10 - B35.1) 07/27/2024 Corns and callosities (ICD-10 - L84) 07/27/2024 Ulcer of left foot with fat layer exposed (ICD-10 - L97.522) Pt seen and evaluated. We discussed with the patient wound care. We discussed complications of wounds including such things as infection, loss of digit, loss of limb and . The patient was instructed on how to care for the wound and signs indicating that the wound is getting worse or infected. The patient is to stay off of the affected limb. The necrotic tissue and debris are inhibiting healing of the wound. The wound was sharply debrided with tissue cutters, removing debris, eschar, necrotic tissue, and partial thickness dermal tissue. The base of the wound was clean with granulation tissue. Dressed with Betadine and bandage today. Pt to do the same. The site is stable. 07/27/2024 Other Plan Of Treatment Treatment Notes Assessment Notes Diabetic peripheral neuropathy We discussed preventative foot care. We discussed preventative foot hygiene. We instructed the patient on how to care for their feet, and to contact the office if any wounds develop or signs of infection arise. Trimmed 6 nails, without incident. The nails were debrided of all fungal material and debris. Debridement included a reduction in bulk of the nail by use of a sharp fingernail sculptor and/or rotary instrument. Reason for debridement include relief of pain, treatment of infection, temporary removal of an anatomic deformity such as onychauxis or onychocryptosis, exposure of subungual conditions for the purpose of treatment as well as diagnosis, and/or as a prophylactic measure to prevent further problems, such as subungual ulceration in an insensate patient with onychauxis. Antiseptic was applied. Debrided 2 nails without incident. The hyperkeratotic lesions were sharply pared. The callus or corns pared are not associated within the toenail complex and are proximal to the interphalangeal joint or are proximal to the distal phalanx. The services performed were on separate sites and not located on a toe. Antiseptic was applied. Pared one hyperkeratotic lesion that is on a separate site of service and not located on a toe. Ulcer of left foot with fat layer exposed Pt seen and evaluated. We discussed with the patient wound care. We discussed complications of wounds including such things as infection, loss of digit, loss of limb and . The patient was instructed on how to care for the wound and signs indicating that the wound is getting worse or infected. The patient is to stay off of the affected limb. The necrotic tissue and debris are inhibiting healing of the wound. The wound was sharply debrided with tissue cutters, removing debris, eschar, necrotic tissue, and partial thickness dermal tissue. The base of the wound was clean with granulation tissue. Dressed with Betadine and bandage today. Pt to do the same. The site is stable. Next Appt Details Follow Up: 2 Months, Reason: PVD Progress Notes * MARIANELA GONZALEZNY RDOB: [birth year] (58 yo M)Acc No.[id number]:07/27/2024 Patient: VIVIAN GARCIA Provider: Shmuel Michaels DPM :1965 A ge:58 Y S ex:Male Date:07/27/2024 Address:[place] [address] Subjective: * Chief Complaints: * D MFC * HPI: N ails: The patient relates t o having difficulty trimming their nails, that some of their nails are thickened. U lcer: In regard to dressings d resses the wound daily, dresses with a bandaid, dresses with antibiotic ointment. I n regard to pain d enies any pain. T he patient relates the drainage is a bsent. I n regard to context, relates t he wound is stable. T he patient d enies trauma, denies redness. T he patient relates they have a history of p rior ulcerations, neuropathy. I n regard to antibiotics, the patient relates t hey are not taking any antibiotics. T he patient d enies fever, denies chills, denies nausea, denies vomiting. A ctivity huggins, the patient relates shmuel srinivasan are weight bearing on the affected foot, they are in a regular shoe. Denies changes. Relates its difficult for him to dress. Relates it hasn't been draining lately but he knows the callus over it is thick. D iabetic: The pt states they are being seen for diabetes managment b y Dr. Albert, and they were most recently seen on 07/02/24. * Medical History: * Surgical History: * Hospitalization/Major Diagno stic Procedure: * Medications: T akingPARoxetine HCl , Notes to Pharmacist: *Pick strength-form from [employer] for eRX*BUSPIRONE , Notes to Pharmacist: *Reorder from [employer] for eRx and Interaction Alerts*Lisinopril , Notes to Pharmacist: *Pick strength-form from [employer] for eRX*Omeprazole , Notes to Pharmacist: *Pick strength-form from [employer] for eRX*Trulicity , Notes to Pharmacist: *Pick strength-form from [employer] for eRX*Topiramate , Notes to Pharmacist: *Pick strength-form from [employer] for eRX*Humatin , Notes to Pharmacist: *Reorder from [employer] for eRx and Interaction Alerts*CYCLOBENZAPRINE , Notes to Pharmacist: *Reorder from [employer] for eRx and Interaction Alerts*TRAMADOL , Notes to Pharmacist: *Reorder from [employer] for eRx and Interaction Alerts*WARFARIN , Notes to Pharmacist: *Reorder from [employer] for eRx and Interaction Alerts*Metformin , Notes to Pharmacist: *Reorder from [employer] for eRx and Interaction Alerts*Furosemide , Notes to Pharmacist: *Pick strength-form from [employer] for eRX*Meloxicam , Notes to Pharmacist: *Pick strength-form from [employer] for eRX*ATORVASTATIN , Notes to Pharmacist: *Reorder from [employer] for eRx and Interaction Alerts*Taking PARoxetine HCl , Notes to Pharmacist: *Pick strength- form from [employer] for eRX*Taking BUSPIRONE , Notes to Pharmacist: *Reorder from [employer] for eRx and Interaction Alerts*Taking Lisinopril , Notes to Pharmacist: *Pick strength-form from [employer] for eRX*Taking Omeprazole , Notes to Pharmacist: *Pick strength-form from [employer] for eRX*Taking Trulicity , Notes to Pharmacist: *Pick strength-form from [employer] for eRX*Taking Topiramate , Notes to Pharmacist: *Pick strength-form from [employer] for eRX*Taking Humatin , Notes to Pharmacist: *Reorder from [employer] for eRx and Interaction Alerts*Taking CYCLOBENZAPRINE , Notes to Pharmacist: *Reorder from [employer] for eRx and Interaction Alerts*Taking TRAMADOL , Notes to Pharmacist: *Reorder from [employer] for eRx and Interaction Alerts*Taking WARFARIN , Notes to Pharmacist: *Reorder from [employer] for eRx and Interaction Alerts*Taking Metformin , Notes to Pharmacist: *Reorder from [employer] for eRx and Interaction Alerts*Taking Furosemide , Notes to Pharmacist: *Pick strength-form from [employer] for eRX*Taking Meloxicam , Notes to Pharmacist: *Pick strength-form from [employer] for eRX*Taking ATORVASTATIN , Notes to Pharmacist: *Reorder from [employer] for eRx and Interaction Alerts* Objective: * Vitals: H t: 71 in, Wt:444lbs, BP:172/95mm Hg, HR:97/min, BMI:61.92Index, Wt-k.4 kg, Ht-cm: 180.34 cm, Body Surface Area: 3.17. * Examination: C lass Findings: Class A Findings (Q7) p artial amputation, left second and third digits. D ermatologic: Skin findings: c ool and dry, no open ulcerations or interdigital macerations. Edema m oderate, severe, generalized. Nail pathology: D igits 2-5 right and digits 4-5 left are?thickened, mildly dystrophic. Hallux nails bilateral are increased thickness and dystrophy with subungual debris. Hypertrophic / hyperkeratotic lesion: s mall area of hyperkeratosis to the medial rearfoot left. V ascular: Dorsalis pedis pulse: 0 /4. Posterior tibial pulse: 0 /4. N eurologic: Gross sensation d iminished. M usculoskeletal: Joint range of motion: b ilateral, ankle, with decreased range of motion. Pain elicited with palpation of: n o noted pain on palpation. Pain elicited with range of motion: n o noted pain with range of motion. U lcer: The size of the ulcer is 0 .4 cm x 0.3 cm x 0.2 cm. The wound is located at d istal hallux, left. The wound bed is s uperficial, granular. The wound margins are h yperkeratotic. The surrounding tissue is n ormotrophic. The drainage is s erosanguinous, mild in amount. T here is also callused tissue with a superficial macerated ulcer, distal right third digit, does not probe deep, no edema or erythema. Assessment: * Assessment: 1. D iabetic peripheral neuropathy - E11.42 (Primary) 2 . N ail dystrophy - L60.3 3 . T inea unguium - B35.1 4 . C orns and callosities - L84 5 . U lcer of left foot with fat layer exposed - L97.522 Plan: * Treatment: 2. U lcer of left foot with fat layer exposed Notes: Pt seen and evaluated. We discussed with the patient wound care. We discussed complications of wounds including such things as infection, loss of digit, loss of limb and . The patient was instructed on how to care for the wound and signs indicating that the wound is getting worse or infected. The patient is to stay off of the affected limb. The necrotic tissue and debris are inhibiting healing of the wound. The wound was sharply debrided with tissue cutters, removing debris, eschar, necrotic tissue, and partial thickness dermal tissue. The base of the wound was clean with granulation tissue. Dressed with Betadine and bandage today. Pt to do the same. The site is stable. * Procedure Codes: G 0127 TRIMMING DYSTROPHIC NAILS ANY #, Modifiers: Q7 32636 DEBRIDE NAIL, 1-5, Modifiers: Q7 74185 TRIM SKIN LESION, Modifiers: Q7 23264 ACTIVE WOUND CARE/20 CM OR < * Follow Up: 2 Months (Reason: PVD) * Billing Information: * Visit Code: * Procedure Codes: G0127 TRIMMING DYSTROPHIC NAILS ANY #. Modifiers: Q7 30264 DEBRIDE NAIL, 1-5. Modifiers: Q7 08463 TRIM SKIN LESION. Modifiers: Q7 19504 ACTIVE WOUND CARE/20 CM OR <. * Sign off status: Completed true * Provider: Shmuel Michaels DPM Date: 0 07/27/2024 Generated for Zulay gutierrez/Bay/Florenciaitting on: 0 08/01/2024 02:22 PM CDT History and Physical Notes * HPI (History of Present Illness) Category Sub-Category Detail Notes Category Not es Ulcer In regard to dressings dresses t he wound daily, dresses with a bandaid, dresses with antibiotic ointment Denies changes. Relates its difficult for him to dress. Relates it hasn't been draining lately but he knows the callus over it is thick. In regard to pain denies any pain The patient relates the drainage is abse nt In regard to context, relates the wound is stable The patient denies trauma, denie s redness The patient relates they hav e a history of prior ulcerations, neuropathy In regard to antibiotics, th e patient relates they are not taking any antibiotics The patient denies fever, denies chills, denies nausea, denies vomiting Activity huggins, the patient relates they are weight bearing on the affected foot, they are in a regular shoe Diabetic The pt states they a re being seen for diabetes managment by Dr. Albert, and they were most recently seen on 07/02/24 Nails The patient relates to having di fficulty trimming their nails, that some of their nails are thickened Examination Category Sub-Category Detail Notes Category Not es Dermatologic Skin findings: cool and dry, no open ulcerations or interdigital macerations Nail pathology: Digits 2-5 right and digits 4-5 left are thickened, mildly dystrophic. Hallux nails bilateral are increased thickness and dystrophy with subungual debris Hypertrophic / hyperkeratotic lesion: sm all area of hyperkeratosis to the medial rearfoot left Edema moderate, severe, ge neralized Neurologic Gross sensation diminished Musculoskeletal Joint range of motion: bilateral , ankle, with decreased range of motion Pain elicited with palpation of: no note d pain on palpation Pain elicited with range of motion: no n oted pain with range of motion Vascular Dorsalis pedis pulse: 0/4 Posterior tibial pulse: 0/4 Ulcer The size of the ulcer is 0.4 cm x 0.3 cm x 0.2 cm There is also callused tissue with a superficial macerated ulcer, distal right third digit, does not probe deep, no edema or erythema. The wound is located at distal hallux, l eft The wound bed is superficial, granula r The wound margins are hyperkeratotic The surrounding tissue is normotrophic The drainage is serosanguinous, mild in amount Class Findings Class A Findings (Q7) partial am putation, left second and third digits
--- OUTSIDE RECORDS SUMMARY | 2024-08-01 14:23 | XMS_ITS | Clinical Summary ---
Author Organization [facility] Address [address] [place] [address] Care Team Providers Care Vine Fruit Farming Supervisor Name Role Phone Erick Albert MD Primary Care Provider Phillip Goldman MD Unavailable Kesha Doyle CONSTRUCTION TECHNICIAN Unavailable [phone] Donny Olsen DPM Unavailable [phone] Allergies Active Allergy Reactions Criticality Noted Date Comments Penicillin V Rash,Vomiting Low 12/12/2017 Patient has received Cefepime in past Strawberries Rash Low 12/12/2017 Medications metFORMIN 1000 MG tablet Take 1 tablet (1,000 mg total) by mouth 2 (two) times daily. 5 Active omeprazole 20 MG capsule Take 1 capsule (20 mg total) by mouth daily. Active cyclobenzaprine 10 MG tablet Take 1 tablet (10 mg total) by mouth nightly at bedtime. 8 Active lisinopril 20 MG tablet Take 1 tablet (20 mg total) by mouth daily. 8 Active atorvastatin 80 MG tablet Take 1 tablet (80 mg total) by mouth daily. 8 Active Circaid Compression Wrap DME Bilateral Compression Wrap 30-40 mmhg apply to legs Dx I89.0 2 Container 1 9 Active HUMULIN R U-500 KWIKPEN 500 UNIT/ML injection Inject 0.14 mLs (70 Units total) into the skin 2 (two) times daily with meals. 1 9 Active topiramate 100 MG tablet 1 tablet (100 mg total) 2 (two) times daily. 0 9 Active PAROXETINE HCL OR Take 60 mg by mouth every morning. Active ARIPiprazole 5 MG tablet Take 1 tablet (5 mg total) by mouth nightly at bedtime. 1 Active busPIRone 30 MG tablet Take 1 tablet (30 mg total) by mouth 2 (two) times daily. 1 Active hydroCHLOROthia zide 12.5 MG capsule Take 1 capsule (12.5 mg total) by mouth daily. 1 Active B-D 3CC LUER-JODEE SYR 25GX1/2 25G X 1-1/2 3 ML Misc Inject 1 each as directed daily. 1 Active B-D 5CC LUER-JODEE SYR 24CB1-9/2 22G X 1-1/2 5 ML Misc Inject 1 each as directed as needed. 1 Active WARFARIN SODIUM OR Take 6 mg by mouth nightly at bedtime. Active meloxicam (MOBIC) 15 MG tablet Take 1 tablet (15 mg total) by mouth daily. Active venlafaxine XR (EFFEXOR-XR) 75 MG 24 hr capsule Take 1 capsule (75 mg total) by mouth daily. Active semaglutide (OZEMPIC) 2 mg/dose injection (PEN)Indication s:Diabetes Mellitus Inject 2 mg into the skin once a week. Indications: Diabetes tuesdays Active Active Problems Problem Noted Date Diagnosed Date Elevated troponin 09/02/2020 Septic shock ([facility]) 08/31/2020 Primary osteoarthritis of left knee 08/19/2020 Primary osteoarthritis of right knee 08/19/2020 Osteomyelitis of toe ([facility]) 9 Pelvic lymphadenopathy 03/06/2018 Inguinal lymphadenopathy 03/06/2018 Chronic anticoagulation 03/06/2018 Chronic venous insufficiency 12/31/2017 Lymphedema 12/31/2017 History of DVT (deep vein thrombosis) 12/31/2017 Class 3 severe obesity due t o excess calories without serious comorbidity with body mass index (BMI) greater than or equal to 70 in adult 12/31/2017 Athlete's foot 07/12/2016 Lipoma 08/09/2015 Lipoma of flank 08/09/2015 Right groin mass 08/09/2015 COPD, moderate ([facility]) 08/10/2014 BANDAR (obstructive sleep apnea) 08/10/2014 Diabetes mellitus ([facility]) 08/06/2014 Shortness of breath 07/26/2014 Anaclitic depression 03/09/2013 Factor V Leiden mutation ([facility]) 03/09/2013 Hypertension 03/09/2013 Nocturia 03/09/2013 Slowing of urinary stream 03/09/2013 Overview (06/05/2018): Overview: Description: weak Weight gain 03/09/2013 senior care current use of insulin ([facility]/ [facility]) 03/09/2013 Morbid obesity 03/09/2013 Type 2 diabetes mellitus ([facility]) 03/09 Overview (06/05/2018): Overview: Description: in 2009 at age 43 Cellulitis Overview (12/13/2017): BLE Bilateral lower extremity edema Factor V deficiency ([facility]) Right calf pain Knee pain Resolved Problems Problem Noted Date Diagnosed Date Resolved Date Pre-operative cardiovascular examination 05/28/2019 12/11/2019 Immunizations Immunization Administration Dates Next Due Hepatitis B (Generic: Adult) 01/23/2007,06/06/19 07,04/11/2006 Influenza (Generic) 03/01/2017,1966 Pneumococcal (Pneumovax 23) 04/01/2011, 0 Family History Medical History Relation Comments Mental Health Father No Known Problems Maternal Grandfather Breast Cancer Maternal Grandmother Breast Cancer Mother Thyroid Disease Mother skin cancer Mother Diabetes Paternal Grandfather Lupus Paternal Grandmother Relation Status Comments Father Maternal Grandfather Maternal Grandmother Mother Paternal Grandfather Paternal Grandmother Social History Tobacco Use Types Packs/Day Years [...] file Not on file Not on file Last Filed Vital Signs Vital Sign Reading Time Taken Comments Blood Pressure 154/70 11/27/2023 4:30 PM CDT Pulse 76 11/27/2023 4:30 PM CDT Temperature 36.9 C (98.4 F) 11/25/2023 12:54 PM CDT Respiratory Rate 20 11/26/2023 9:00 AM CDT Oxygen Saturation 97% 11/27/2023 4:30 PM CDT Inhaled Oxygen Concentration - - Weight 207.3 kg (457 lb) 11/25/2023 12:54 PM CDT Height 180.3 cm (5' 11 ) 11/25/2023 12:54 PM CDT Body Mass Index 63.74 11/25/2023 12:54 PM CDT Plan of Treatment Health Maintenance Due Date Last Done Comments Colorectal Cancer Screening Colonoscopy (10 Years) 1966 Kidney Health Evaluation 1966 Meningococcal Vaccine (1 - Risk 2-dose series) 1968 Annual Physical 1969 Meningococcal B Vaccine (1 o f 5 - Increased Risk) 1976 Diabetes: Retinopathy Eye Exam 1984 Hepatitis C 1984 DTaP, Tdap and Td Vaccines ( 1 - Tdap) 1985 Lipid Panel 03/12/2008 03/12/2007 Pneumococcal Vaccine: 50+ Years (2 of 2 - PCV) 04/01/2012 04/01/2011, 03/09/2010 Zoster Vaccines (1 of 2) 2016 Hemoglobin A1C 03/02/2021 08/31/2020 COVID-19 Vaccine (1 - 2023-2 5 season) 2023 Hepatitis B Vaccines Completed 01/23/2007, 06/05/2006, 04/11/2006 RSV Immunizations Under 20 Months Aged Out No longer eligible b ased on patient's age to complete this topic Goals Goal Patient Goal Type Associated Problems Recent Progress Patient-Stated? Author Safety Patient/family will have appropriate support at home upon discharge General No Aria Torres RN Procedures Procedure Name Priority Date/Time Associated Diagnosis Comments HEMOGLOBIN, GLYCOSYLATED STAT 08/31/2020 12:59 AM CDT LIPID PANEL Routine 03/12/2007 12:05 PM ACCOUNT SERVICES REPRESENTATIVE from Last 3 Months or Most Recently Relevant to Health Maintenance Results * (ABNORMAL) HEMOGLOBIN, GLYCOSYLATED (08/31/2020 12:59 AM CDT) HGB A1C 7.6(H) <5.7 % 08/31/2020 2:01 AM CDT [facility] ESTIMATED AVG GLUCOSE 171(H) 74 - 114 MG/DL 08/31/2020 2:01 AM CDT [facility] 08/31/2020 12:5 9 AM CDT us Naseem Fragoso MD LABORATORY Final Result [facility] [address] [place] [address], [id number] * (ABNORMAL) LIPID PANEL (03/12/2007 12:05 PM ACCOUNT SERVICES REPRESENTATIVE) HDL 41 >39 mg/dL [facility] TO EPIC CONVERSION LIPOPROTEIN (A) 3 0 - 30 mg/dL [facility] TO EPIC CONVERSION LDL CONVERSION 134(H) <100 mg/dL [facility] TO EPIC CONVERSION CHOLESTEROL 193 <200 mg/dL [facility] TO EPIC CONVERSION TRIGLYCERIDES 187(H) <150 mg/dL [facility] TO EPIC CONVERSION VLDL CALCULATION 18 0 - 31 mg/dL [facility] TO EPIC CONVERSION CHOL/HDL RATIO 4.7(H) 0 - 4 [facility] TO EPIC CONVERSION CHOL/HDL RATIO 3.3(H) 0 - 3 [facility] TO EPIC CONVERSION APOLIPOPROTEIN B 116(H) 0 - 115 mg/dL [facility] TO EPIC CONVERSION NON HDL CHOLESTEROL 152(H) 0 - 130 mg/dL [facility] TO EPIC CONVERSION HOMOCYSTEINE (U) 13(H) 0 - 9 umol/l [facility] TO EPIC CONVERSION HOMOCYSTEINE (U) NORMAL LEVEL IS LESS THAN OR EQUAL TO 9 MILD IS 10 TO 15 umol/L MODERATE IS 16 [facility] TO EPIC CONVERSION 03/12/2007 12:0 5 PM ACCOUNT SERVICES REPRESENTATIVE 03/12/2007 12:05 PM ACCOUNT SERVICES REPRESENTATIVE us Generic Conversion Md [facility] Final R esult [facility] TO EPIC CONVERSION from Last 3 Months or Most Recently Relevant to Health Maintenance Insurance MEDICAID [employer] MEDICAID Advance Directives * Full Code (Latest Code Status on File) Date Activated Date Inactivated Comments 08/31/2020 12:41 AM 09/16/2020 3:59 PM Care Teams [employer] Farm[employer] Supervisor Relationship Specialty Start Date End Date Erick Albert MD [address] [place] [address] PCP - General FAMILY PRACTICE 12/12/17 Phillip Goldman MD [address] [place] [address] Vascular/Wine Master INTERNAL MEDICINE 12/12/17 Kesha Doyle FNP [address] [place] [address] Nurse Practitioner Family 05/22/19 Donny Olsen, AMANUEL [address] [place] [address] Surgeon PODIATRY 07/27/19
--- OUTSIDE RECORDS SUMMARY | 2024-08-01 14:23 | XMS_ITS | Patient Health Record ---
[facility] Organization [facility] Address [address] [place] [address] Care Team Providers Care Drug And Alcohol Treatment Specialist Name Role Phone XENIA JUAN Unavailable [phone] Erick Albert Unavailable Unavailable Allergies Allergen (clinical drug ingredient) Drug/Non Drug Allergy documented on EMR Reaction Allergy Type Onset Date Status Substance with penicillin structure and antibacterial mechanism of action (substance) Penicillins N-Modera Drug Allergy 07/08/2019 Active Reason For Referral No Information Medications Medication SIG (Take, Route, Frequency, Duration) Notes Start Date End Date Status Omeprazole for -2 *Pick strength-f orm from [employer] for eRX* 07/09/2019 Active Trulicity for -2 *Pick strength-f orm from [employer] for eRX* 07/09/2019 Active Meloxicam for -2 *Pick strength-f [...] for eRx and Interaction Alerts* 07/09/2019 Active Topiramate for -2 *Pick strength-f [...] Problem Status W/U Status Risk Notes Problem Ulcer of right foot (disorder) (741593652) Ulcer of right foot with fat layer exposed (L97.512) Active confirmed Problem Ulcer of left foot (disorder) (895317413) Ulcer of left foot with fat layer exposed (L97.522) Active confirmed Problem Ulcer of right midfoot with fat layer exposed (L97.412) Active confirmed Problem Ulcer of left midfoot with fat layer exposed (L97.422) Active confirmed Problem 087272079 Diabetic peripheral neuropathy (E11.42) Active confirmed Problem Tinea unguium (715196988) Tinea unguium (B35.1) 09/06/19 23 Active confirmed Problem Anxiety disorder (400587525) Anxiety disorder, unspecified (F41.9) 12/26/19 19 Active confirmed Problem Disorder of the peripheral nervous system (79168445) Other disorders of peripheral nervous system (G64) 12/26/19 19 Active confirmed Problem Peripheral vascular disease (482103559) Other specified peripheral vascular diseases (I73.89) 12/23/19 19 Active confirmed Problem Embolism from thrombosis of vein of lower extremity (104799457) Acute embolism and thrombosis of unspecified deep veins of unspecified lower extremity (I82.409) 12/26/19 19 Active confirmed Problem Nail dystrophy (52736737) 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) 09/06/19 23 Active confirmed Problem Callosity (305780633) Corns and callosities (L84) 09/06/19 23 Active confirmed Problem Ankle ulcer (124660619) Non-pressure chronic ulcer of right ankle with fat layer exposed (L97.312) 08/04/19 21 Active confirmed Problem Non-pressure chronic ulcer of other part of left foot limited to breakdown of skin (L97.521) 10/26/19 20 Active confirmed Problem Chronic ulcer of foot (489782601) Non-pressure chronic ulcer of other part of left foot with fat layer exposed (L97.522) 09/06/19 23 Active confirmed Problem Plantar fascial fibromatosis (36693361) Plantar fascial fibromatosis (M72.2) 02/24/20 19 Active confirmed Problem Acute osteomyelitis of ankle and/or foot (453497833) Other acute osteomyelitis, left ankle and foot (M86.172) 07/28/19 20 Active confirmed Problem History and physical examination, follow-up (999658422) Encounter for follow-up examination after completed treatment for conditions other than malignant neoplasm (Z09) 06/02/19 21 Active confirmed Problem Finding relating to psychosocial functioning (644560813) Other specified problems related to psychosocial circumstances (Z65.8) 12/26/19 19 Active confirmed Problem Long-term current use of anticoagulant (976052982) salvage determiner (current) use of anticoagulants (Z79.01) 12/26/19 19 Active confirmed Problem Family history of cancer (459701883) Family history of malignant neoplasm, unspecified (Z80.9) 12/26/19 19 Active confirmed Problem Family history of ischemic heart disease (057606716) Family history of ischemic heart disease and other diseases of the circulatory system (Z82.49) 12/26/19 19 Active confirmed Problem Essential hypertension (23385433) Essential (primary) hypertension (I10) 12/26/19 19 Active confirmed Vital Signs Heart Rate 97 /min 07/27/2024 Blood pressure diastolic 95 mm Hg 07/27/2024 Height-cm 180.34 cm 07/27/2024 Weight-kg 201.4 kg 07/27/2024 Height 71 in 07/27/2024 Blood pressure systolic 172 mm Hg 07/27/2024 Weight 444 lbs 07/27/2024 BMI 61.92 kg/m2 07/27/2024 Encounters Encounter Location Date Provider Diagnosis [facility] [address] [place] [address] 08/21/2023 JUAN MICHAELS Nail dystrophy L60.3 ; Other specified peripheral vascular diseases I73.89 ; Tinea unguium B35.1 ; Corns and callosities L84 and Ulcer of left foot with fat layer exposed L97.522 [facility] [address] [place] [address] 07/27/2024 JUAN XENIA Nail dystrophy L60.3 ; Diabetic peripheral neuropathy E11.42 ; Tinea unguium B35.1 ; Corns and callosities L84 and Ulcer of left foot with fat layer exposed L97.522 Assessments Encounter Date Diagnosis (ICD Code) Assessment Notes Treatment Notes Treatment Clinical Notes Section Notes 08/21/2023 Nail dystrophy (ICD-10 - L60.3) 07/27/2024 Nail dystrophy (ICD-10 - L60.3) 07/27/2024 [...] the nail by use of a sharp seat nailer and/or rotary instrument. Reason for debridement include [...] toe. 07/27/2024 Tinea unguium (ICD-10 - B35.1) 08/21/2023 Other specified peripheral vascular diseases (ICD-10 - I73.89) We discussed preventative foot care. We discussed [...] the nail by use of a sharp seat nailer and/or rotary instrument. Reason for debridement include [...] on a toe. Antiseptic was applied. Pared two hyperkeratotic lesions that are on separate sites of service and not located on a toe. Some bleeding noted to each, applied Xeroform. 08/21/2023 Tinea unguium (ICD-10 - B35.1) 07/27/2024 Corns [...] do the same. The site is stable. 08/21/2023 Corns and callosities (ICD-10 - L84) 08/21/2023 Ulcer of left foot with fat layer [...] to stay off of the affected limb. Dressed with Xeroform and bandage today. Pt to do the same. The site is stable. 07/27/2024 Other Plan Of Treatment No Information Insurance Providers Payer Name Payer Address Payer Phone Subscriber Number Group Number Insured Name Patient Relationship to Insured Coverage Start Date Coverage End Date [employer] [address] [place] [address] [id number] VIVIAN GONZALEZ Self - patient is the insured 0 [place] [employer] [place] [employer] [address] [address] [place] [address] [id number] VIVIAN GONZALEZ Self - patient is the insured
--- OUTSIDE RECORDS SUMMARY | 2024-08-01 14:23 | XMS_ITS | Data Portability ---
Author Organization [facility], [address] [facility] ([place]) Address [address] [place] [address] Care Team Providers Care Automatic Fabric Cutter Name Role Phone SHARAN QURESHI Primary Care Provider Assessment Encounter Date Assessment Date Assessment LastModified by Organization Details LastModified Time 02/05/2024 02/05/2024 Mr. Sarmiento, 58-year-old male, here for hospital follow-up for possible endocarditis. Patient is doing well today with no signs or symptoms of infection. Continue IV cefazolin through 02/12/24, completing 6 weeks of antibiotic therapy. Okay to stop antibiotics on 02/12/24. Will send PICC line removal order to facility. Continue weekly labs while on IV antibiotics. CBC and CMP. Will notify patient of results. Reviewed labs from 02/03/24 with patient. WBC 5 normal, hemoglobin 10.8, platelets 209, creatinine 0.8, GFR 10. Continue to monitor for signs and symptoms of infection such as redness, swelling, tenderness, warmth, fever, chills and sweats. Notify our office if patient experiences any of these. Diabetes care to maintain HgbA1c less than 8 (optimally, less than 7) or an average blood glucose less than 180 mg/dl to optimize healing and immune response. Keep follow up appointments with cardiology and PCP or facility doctor. Will reach out to facility regarding repeat echo after antibiotics have finished. Follow up with [facility] in 1 month or sooner as needed. The patient had the opportunity to ask and have questions answered. The patient voiced an understanding of the diagnosis and of the care plan and intent to comply with it. I personally spent a total of 38 minutes on the patient on this date of service including both bsnf-[id number]-xzuf and lys-qjox-jc-face time excluding any separately reportable services. amm bboerma Not available 02/07/2024 12:28:12 Plan of Treatment Reminders Order Date Submit Date Provider Last Modified By Organization Details Last Modified Time Details Appointments None record ed. Lab None record ed. Referral None record ed. Procedures None record ed. Surgeries None record ed. Imaging None record ed. Medication Orders None record ed. Patient TargetsNo targets recorded. Patient InstructionsNo instructions recorded. Reason for Referral None Reported. Results Created Date Observation Date Name Description Value Unit Range Abnormal Flag Note LastModifiedBy Organization Detail LastModifiedTime 02/17/20 24 02/10/2024 , echoc [facility] [address] [facility] [place] [address] Adult Echoca rdiogr am Report Name: Todd SARMIENTO Study Date: 2023 : 1965 08[birth year] Gender : Male Age: 58 yrs Height : 72 in Weight : 380 lb BSA: 2.8 m2 Perfor med By: CJ Reason For Study: Endoca rditis I38 Patien t Locati on: CARDIO LOGY Interp retati on Summar y Techni yuri diffic ult study. There is no eviden ce for endoca rditis on images that were obtain ed. The right ventri cular systol ic functi on is mildly reduce d. There is a modera te genera lized perica rdial effusi on noted. The left ventri cular systol ic functi on is not well visual ized howeve r appear s to be normal . PROCED URE DETAIL S: A limite d transt horaci c echoca rdiogr am was perfor med (2D; spectr al and color flow Dopple r). The study was techni yuri limite d. There were techni pito limita tions during this study due to patien ts body habitu s. LEFT VENTRI YFN: The left ventri cular systol ic functi on is not well visual ized howeve r appear s to be normal . RIGHT VENTRI YFN: The right ventri yfn is dilate d. The right ventri cular systol ic functi on is mildly reduce d. TRICUS PID VALVE: The tricus pid valve leafle ts are thin and pliabl e. There is no tricus pid stenos is. VENOUS : The inferi or vena cava is normal in size, with normal respir atory variat ion. PERICA RDIUM/ PLEURA : There is a modera te genera lized perica rdial effusi on noted. There is some respir atory variat ion in tricus pid valve inflow s. Mitral valve inflow <50% variat ion. There are no echoca rdiogr aphic indica tions of cardia c tampon pelon. MMode/ 2D Measur ements RV Base: 6.2 cm Electr onical ly signed by:Melissa Alexandra 2023 06:13 AM cc: Todd Sarmiento 2023 CARDIO ECHO INTERFACE [facility] [address] [place] [address], [id number], 02/17/2024 07:14:52 Result Notes None recorded. Problems Name Problem SNOMED Code Status Onset Date Resolution Date Notes Provider Name and Address Organization Details Recorded Time Acute endocarditi s 74766146 Active [address] 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 Active 2023 Christine Caal APRN, [place], [facility] [address] [place] [address], [phone], [facility] 4 13:40:02 Suspected heart disease 292205027 Active 2023 Christine Caal APRN, [place], [facility] [address] [place] [address], [phone], [facility] 4 13:40:12 Sepsis caused by coagulase negative Staphylococ cus 729176698 Active 2023 Christine Caal APRN, [place], [facility] [address] [place] [address], [phone], [facility] 4 13:40:51 Community acquired pneumonia 944209230 Active 2023 Christine Caal APRN, [place], [facility] [address] [place] [address], [place], [address], [facility] 4 13:41:10 Pulmonary embolism 70981259 Active 2023 Christine Caal APRN, DNP, [facility] [address] [facility], [place], [address], [facility] 4 13:41:58 Deep venous thrombosis of left lower extremity 5406095860404 00 Active 2023 Christine Caal APRN, DNP, [facility] [address] [facility], [place], [address], [facility] 4 13:42:16 Type 2 diabetes mellitus 67362035 Active 2023 Christine Caal APRN, [place], [facility] [address] [facility], [place], [address], [facility] 4 13:42:33 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 Procedures Surgical History None recorded. Imaging Results Imaging Date Name Status LastModified by Organization Details LastModified Time 02/10/2024 US, echocardiogram completed INTERFACE [facility] [address] [place] [address], [address], 02/17/2024 07:14:52 Procedure Notes None recorded. Medical Equipment None Reported. Allergies Allergen ID Allergen Name Allergen Category Reaction Reaction Severity Criticality Documentation Date Start Date Code Code System Note Provider Name and Address Organization Details Recorded Time 1692093 Product containin g penicilli n (product) medicatio n Not available Not available Not available 05/01/20232018 17993 8001 SNOMED Not Available [facility] 04:[facility] Medications Name Sig Start Date Stop Date Status Note LastModified by Organization Details LastModified Time venlafaxine ER 75 mg capsule,extend ed release 24 hr TAKE 1 CAPSULE BY MOUTH EVERY DAY active Not Available Not Available No t Available paroxetine 30 mg tablet TAKE 2 TABLETS BY MOUTH EVERY DAY active Not Available Not Available No t Available topiramate 100 mg tablet TAKE 1 TABLET BY MOUTH TWICE A DAY active Not Available Not Available No t Available Humulin R U-500 (Conc) Insulin Kwikpen 500 unit/mL (3 mL) subcutaneous INJECT 70 UNITS SUBQ TWICE A DAY active Not Available Not Available No t Available Vitals None Recorded Social History None recorded. Functional Status None recorded. Mental Status None recorded. Family History Nothing Reported. Medical History No medical history recorded. Past Encounters Encounter ID Performer Location Encounter Start Date Encounter Closed Date Diagnosis/Indication Diagnosis SNOMED-CT Code Diagnosis ICD10 Code Diagnosis Note [id number] Christine Caal, DYNAMIC ETCHING PROCESSOR, DNP, [facility] [address] [facility] ([place]) [address] [place] [address] 02/05/2024 11:30:10 02/17/2024 16:50:40 Tricuspid valve lesion 912289770 I07.8 Suspected heart disease 830563674 R09.89 Sepsis cau sed by coagulase negative Staphylococcus 841907310 A41.1 Community acquired pneumonia 925341140 J18.9 Pulmonary embolism 29305 003 I26.99 Deep venou s thrombosis of left lower extremity 8287006719 36285 I82.402 Type 2 jennifer betes mellitus 07677005 E11.8 Ulcer of l eft foot due to diabetes mellitus 116447692 E11.621 L97.529 Post-disch arge follow-up 738476193 Z09 Health Concerns Section Related Observation LastModified by Organization Detai ls LastModified Time None Recorded Concern Status LastModified by Organization Details LastModified Time None Recorded Advance Directives Directive None Recorded Payers Encounter Date Sequence Insurance Name Policy Number Policy Bravo Covered Member ID Bravo Member ID Guarantor Name 02/05/2024 1 [employer] (MEDICARE REPLACEMENT PPO) [id number] Todd Sarmiento [id number] Todd Sarmiento 02/05/2024 2 [place] [employer] Todd Sarmiento [id number] Todd Sarmiento Notes Date Note Type Note Provider Name and Address Organization Details Recorded Time 02/05/2024 text/html HISTORY OF PRESE NT ILLNESS:Patient is a 58-year-old male with past medical history significant for type 2 diabetes, BANDAR, COPD, hypertension, hyperlipidemia, GERD, PAD, depression, obesity. He was transferred from [facility] to [facility] on 12/31/23 with chest pain. He was found to have acute bilateral PEs and a large mobile mass on tricuspid valve concerning for thrombus vs vegetation thus, Infectious Disease was consulted.Patient initially presented to [facility] from [facility] with chest pain. EKG showed a wide complex tachycardia. No evidence of STEMI. He was transferred to [facility]. On 01/01/[address] A/P showed large bilateral PE burden with evidence of increased right heart pressures. There was GGOs in RAMONE, LLL, and LML. No acute abdominal findings. HERMELINDA on 01/01/24 showed a large 5 cm x 1.2 cm mass on the TV which is mobile and extending into the RVOT. Venous duplex indicating acute DVT of left popliteal, posterior tibial and peroneal veins. CTS and cardiology were following. Of note, patient was recently taken off of his anticoagulation after a recent fall (he estimates about 1 month prior to admission).Blood culture from 12/31/23 were negative. Blood culture x1 from 01/01/24 grew coag negative Staph.Strep and Legionella urine antigens were negative. Mycoplasma Ab negative. MRSA PCR was negative.WBC was 12.5 on presentation. Patient was initially on IV ceftriaxone and IV vancomycin.Patient was accompanied by his son. He is somewhat of a poor historian. He stated that chest pain brought him to the hospital but that has since resolved. He had a cough initially but then his son stated he was coughing earlier on the phone. Patient denied any joint aches/pains out of the ordinary. No fevers or chills. He did have night sweats a couple of non-consecutive nights before coming into the hospital. He has recently lost weight but feels that is intentional. Denies nausea, vomiting, diarrhea, abdominal pain. Denies recent procedures or surgeries to include dental work, joint aspirations. Patient has a wound on his left great toe. He stated he has had it for about a year and it is largely unchanged. He stated he follows with podiatry regularly as an outpatient.Dr. Chinchilla suspected that the TV mass is more likely a thrombus than a vegetation given recent discontinuation of anticoagulants, associated DVT and lack of fever and chills. However, it is difficult to indefinitely disprove endocarditis given a positive blood culture. Weighing risks/benefits of treatment will plan to treat for endocarditis. Continue IV cefazolin 2 g every 8 hours through 02/12/24, completing 6 weeks of antibiotic therapy. Patient completed IV ceftriaxone 1 g daily for 5 days for questionable CAP on 01/05/24. Was also on vancomycin during this time. PICC line per routine care. Patient needs to see a dentist after discharge. Reviewed CT chest from 01/06/24.Patient was discharged on IV cefazolin 2 g every 8 hours through 02/12/24, completing 6 weeks of therapy. Weekly CBC and BMP while on IV antibiotics. Follow up with [facility] Infect[facility] Disease in 2 weeks or sooner as needed.SUBJECTIVE:Tita casarez is here for telehealth visit for hospital follow-up for possible endocarditis. Patient s nurse in room. Patient reports doing okay today. He does report chronic pain in both knees. Denies fever chills and sweats. No reported chest pain, or shortness of breath. He does report an occasional dry cough but denies nausea, vomiting, diarrhea and abdominal pain. Patient is unsure when he follows up with cardiology. He reports tolerance and compliance with IV cefazolin. Nurse reports they did an EKG but no have no plan for repeat cardiac imaging. Christine Caal, DYNAMIC ETCHING PROCESSOR, DNP, [facility] [address] [place] [address], [phone], [place] [facility] 02/07/2024 12:28:21
--- OUTSIDE RECORDS SUMMARY | 2024-08-01 14:23 | XMS_ITS | Clinical Summary ---
Author Organization Unknown Care Team Providers Care Direct Customer Service Representative Name Role Phone KIERA SELLERS, AB Unavailable [...] THROMBOSIS AND EMBOLISM Active 04-01 00:00: 00 ASSISTED (CURRENT) USE OF NON-STEROIDA L NON-INFLAM (NSAID) Active 04-01 00:00: 00 ASSISTED (CURRENT) USE OF ANTICOAGULAN TS Active 04-01 00:00: 00 ASSISTED (CURRENT) USE OF INSULIN Active 04-01 00:00: 00 BUSINESS SUPERVISOR (CURRENT) USE OF ORAL HYPOGLYCEMIC DRUGS Active [...] 80 mg tablet 2023-04 00:00: 00 Yes [id number] HIGH CHOLESTEROL 1 tablet AT BEDTIME 1 tablet AT BEDTIME (route: oral) Med Classific ation: Cardiovas cular Therapy Agents buspirone 10 mg tablet 2023-04 00:00: 00 06-29 23:59 :00 No [id number] MOOD 2 tablet TWICE DAILY 2 tablet TWICE DAILY (route: oral) Med Classific ation: Central Nervous System Agents Eliquis 5 mg tablet 2023-04 00:00: 00 Yes [id number] BLOOD CLOT PREVENTION 1 tablet TWICE DAILY 1 tablet TWICE DAILY (route: oral) Med Classific ation: Hematolog ical Agents insulin lispro (U-100) 100 unit/mL subcutaneou s pen 2023-04 00:00: 00 06-29 23:59 :00 No [id number] DIABETES MELLITUS 70 unit TWICE DAILY 70 unit TWICE DAILY (route: subcutaneo us) Med Classific ation: Endocrine lisinopril 10 mg tablet 2023-04 00:00: 00 06-29 23:59 :00 No [id number] HIGH BLOOD PRESSURE 1 tablet ONCE DAILY 1 tablet ONCE DAILY (route: oral) Med Classific ation: Cardiovas cular Therapy Agents magnesium 250 mg tablet 2023-04 00:00: 00 Yes [id number] SUPPLEMENT 1 tablet ONCE DAILY 1 tablet ONCE DAILY (route: oral) Med Classific ation: Electroly te Balance-N utritiona l Products metformin 1,000 mg tablet 2023-04 00:00: 00 Yes [id number] DIABETES MELLTUS 1 tablet TWICE DAILY 1 tablet TWICE DAILY (route: oral) Med Classific ation: Endocrine Nystop 100,000 unit/gram topical powder 2023-04 00:00: 00 Yes [id number] GAULDING Per instruc tions TWICE DAILY Per instructio ns TWICE DAILY (route: topical) Med Classific ation: Dermatolo gical paroxetine 20 mg tablet 2023-04 00:00: 00 Yes [id number] MOOD 1 tablet ONCE DAILY 1 tablet ONCE DAILY (route: oral) Med Classific ation: Central Nervous System Agents Pepcid 20 mg tablet 2023-04 00:00: 00 Yes [id number] HEART BURN 1 tablet ONCE DAILY 1 tablet ONCE DAILY (route: oral) Med Classific ation: Gastroint estinal Therapy Agents topiramate 25 mg tablet 2023-04 00:00: 00 Yes [id number] HEADACHES 4 tablet TWICE DAILY 4 tablet TWICE DAILY (route: oral) Med Classific ation: Central Nervous System Agents venlafaxine 37.5 mg tablet 2023-04 00:00: 00 Yes [id number] MOOD 1 tablet ONCE DAILY 1 tablet ONCE DAILY (route: oral) Med Classific ation: Central Nervous System Agents Vitamin D2 1,250 mcg (50,000 unit) capsule 2023-04 00:00: 00 Yes [id number] VITAMIN D DEFICIENCY 1 capsule ONCE DAILY 1 capsule ONCE DAILY (route: oral) Med Classific ation: Electroly te Balance-N utritiona l Products amlodipine 2.5 mg tablet 2-11 00:00: 00 06-29 23:59 :00 No [id number] HYPERTENSIO N 1 tablet ONCE DAILY 1 tablet ONCE DAILY (route: oral) Med Classific ation: Cardiovas cular Therapy Agents cephalexin 500 mg capsule 2-26 00:00: 00 06-03 23:59 :00 No [id number] LEG INFECTION 2 capsule 4 TIMES DAILY 2 capsule 4 TIMES DAILY (route: oral) Med Classific ation: Anti-Infe ctive Agents amlodipine 5 mg tablet 07-01 00:00: 00 Yes [id number] HIGH BLOOD PRESSURE 1 tablet ONCE DAILY 1 tablet ONCE DAILY (route: oral) Med Classific ation: Cardiovas cular Therapy Agents buspirone 30 mg tablet 07-01 00:00: 00 Yes [id number] DEPRESSION 1 tablet TWICE DAILY 1 tablet TWICE DAILY (route: oral) Med Classific ation: Central Nervous System Agents cyclobenzap rine 10 mg tablet 07-01 00:00: 00 Yes [id number] MUSCLE SPASMS 1 tablet 3 TIMES DAILY 1 tablet 3 TIMES DAILY (route: oral) Med Classific ation: Locomotor System lisinopril 20 mg tablet 07-01 00:00: 00 Yes [id number] HIGH BLOOD PRESSURE 1 tablet ONCE DAILY 1 tablet ONCE DAILY (route: oral) Med Classific ation: Cardiovas cular Therapy Agents meloxicam 15 mg tablet 07-01 00:00: 00 Yes [id number] JOINT PAIN 1 tablet ONCE DAILY 1 tablet ONCE DAILY (route: oral) Med Classific ation: Analgesic , Anti-infl ammatory or Antipyret ic Novolog FlexPen U-100 Insulin aspart 100 unit/mL (3 mL) subcutaneou s 07-01 00:00: 00 Yes [id number] DIABETES 70 unit TWICE DAILY 70 unit TWICE DAILY (route: subcutaneo us) Med Classific ation: Endocrine Ozempic 0.25 mg or 0.5 mg (2 mg/3 mL) subcutaneou s pen injector 07-01 00:00: 00 Yes [id number] DIABETES Per instruc tions WEEKLY Per instructio [...] PHYSICIAN OR 911] Future Scheduled Test [facility] TIFYING PHYSICIAN, ASSOCIATED PHYSICIAN, NPP OR PA [...] TIMES PER DAY.] Future Scheduled [facility] IN[facility] AND VERIFY APPROPRIATE [...] BY THE PHYSICIAN.] Future Scheduled [facility] WILL INSTRUCT PATIENT/CAREGIVER ON TYPE [...] LOW BLOOD SUGAR.] Future Scheduled [facility] WILL ASSESS FOR COMPLICATIONS RELATED TO ANTICOAGULATION USE AND INSTRUCT PATIENT/CAREGIVER ABOUT PRECAUTIONS TO FOLLOW AND SIGNS/SYMPTOMS TO REPORT. [code = HOME HEALTH NURSE WILL ASSESS FOR COMPLICATIONS RELATED TO ANTICOAGULATION USE AND INSTRUCT PATIENT/CAREGIVER ABOUT PRECAUTIONS TO FOLLOW AND SIGNS/SYMPTOMS TO REPORT.] Future Scheduled [facility] WILL ASSESS FOR COMPLICATIONS RELATED [...] TEACH DEPRESSIVE SYMPTOMS.] Future Scheduled [facility] WILL INSTRUCT ABOUT COPD, APPROPRIATE [...] WILL BE ESTABLISHED THAT MEETS ALL PATIENT'S ALF NEEDS AND COUNTER SIGNED BY PHYSICIAN. Goal [...] End Date/Time Encounter Type Admission Type Attending [facility] Facility Care Department Encounter ID Discharge Date Discharge Status Discharge Condition Discharge Reason Percent Goals Met 2024-03-03 00:00:00 2024-08-29 00:00:00 Outpatient RECERTIFIC [facility] AB[facility]Y SHEN [facility] [id number] 25.93
--- OUTSIDE RECORDS SUMMARY | 2024-08-01 14:23 | XMS_ITS | Encounter Summary ---
Author Organization [facility] Address [address] [place] [address] Care Team Providers Care Classics Professor Name Role Phone Erick Albert MD Primary Care Provider [phone] Phillip Goldman MD Unavailable Kesha Doyle PERSONAL ATTENDANT Unavailable [phone] Donny Olsen DPM Unavailable [phone] Encounter Details Date Type Department Care Team (Late st Contact Info) Description 09/06/2018 Abstract [facility] CONVERSION [address] [place] [address] , Generic Conversion, Social History Tobacco Use Types Packs/Day Years [...] documented as of this encounter Care Teams Classics Professor Relationship Specialty Start Date End Date Erick Albert MD [address] [place] [address] PCP - General FAMILY PRACTICE 12/12/17 Phillip Goldman MD [address] [place] [phone] Vascular/Track [employer] INTERNAL MEDICINE 12/12/17 Kesha Doyle, PERSONAL ATTENDANT [address] [place] [address] Nurse Practitioner Family 05/22/19 Donny Olsen DPM [address] [place] [address] Surgeon PODIATRY 07/27/19 documented as of this encounter
--- OUTSIDE RECORDS SUMMARY | 2024-08-01 14:29 | XMS_ITS | Clinical Summary ---
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) USE OF ORAL HYPOGLYCEMIC DRUGS Active [...] 80 mg tablet 2023-04 00:00: 00 Yes [id number] HIGH CHOLESTEROL 1 tablet AT BEDTIME 1 tablet AT BEDTIME (route: oral) Med Classific ation: Cardiovas cular Therapy Agents buspirone 10 mg tablet 2023-04 00:00: 00 06-29 23:59 :00 No [id number] MOOD 2 tablet TWICE DAILY 2 tablet TWICE DAILY (route: oral) Med Classific ation: Central Nervous System Agents Eliquis 5 mg tablet 2023-04 00:00: 00 Yes [id number] BLOOD CLOT PREVENTION 1 tablet TWICE DAILY 1 tablet TWICE DAILY (route: oral) Med Classific ation: Hematolog ical Agents insulin lispro (U-100) 100 unit/mL subcutaneou s pen 2023-04 00:00: 00 06-29 23:59 :00 No [id number] DIABETES MELLITUS 70 unit TWICE DAILY 70 unit TWICE DAILY (route: subcutaneo us) Med Classific ation: Endocrine lisinopril 10 mg tablet 2023-04 00:00: 00 06-29 23:59 :00 No [id number] HIGH BLOOD PRESSURE 1 tablet ONCE DAILY 1 tablet ONCE DAILY (route: oral) Med Classific ation: Cardiovas cular Therapy Agents magnesium 250 mg tablet 2023-04 00:00: 00 Yes [id number] SUPPLEMENT 1 tablet ONCE DAILY 1 tablet ONCE DAILY (route: oral) Med Classific ation: Electroly te Balance-N utritiona l Products metformin 1,000 mg tablet 2023-04 00:00: 00 Yes [id number] DIABETES MELLTUS 1 tablet TWICE DAILY 1 tablet TWICE DAILY (route: oral) Med Classific ation: Endocrine Nystop 100,000 unit/gram topical powder 2023-04 00:00: 00 Yes [id number] GAULDING Per instruc tions TWICE DAILY Per instructio ns TWICE DAILY (route: topical) Med Classific ation: Dermatolo gical paroxetine 20 mg tablet 2023-04 00:00: 00 Yes [id number] MOOD 1 tablet ONCE DAILY 1 tablet ONCE DAILY (route: oral) Med Classific ation: Central Nervous System Agents Pepcid 20 mg tablet 2023-04 00:00: 00 Yes [id number] HEART BURN 1 tablet ONCE DAILY 1 tablet ONCE DAILY (route: oral) Med Classific ation: Gastroint estinal Therapy Agents topiramate 25 mg tablet 2023-04 00:00: 00 Yes [id number] HEADACHES 4 tablet TWICE DAILY 4 tablet TWICE DAILY (route: oral) Med Classific ation: Central Nervous System Agents venlafaxine 37.5 mg tablet 2023-04 00:00: 00 Yes [id number] MOOD 1 tablet ONCE DAILY 1 tablet ONCE DAILY (route: oral) Med Classific ation: Central Nervous System Agents Vitamin D2 1,250 mcg (50,000 unit) capsule 2023-04 00:00: 00 Yes [id number] VITAMIN D DEFICIENCY 1 capsule ONCE DAILY 1 capsule ONCE DAILY (route: oral) Med Classific ation: Electroly te Balance-N utritiona l Products amlodipine 2.5 mg tablet 2-11 00:00: 00 06-29 23:59 :00 No [id number] HYPERTENSIO N 1 tablet ONCE DAILY 1 tablet ONCE DAILY (route: oral) Med Classific ation: Cardiovas cular Therapy Agents cephalexin 500 mg capsule 2-26 00:00: 00 06-03 23:59 :00 No [id number] LEG INFECTION 2 capsule 4 TIMES DAILY 2 capsule 4 TIMES DAILY (route: oral) Med Classific ation: Anti-Infe ctive Agents amlodipine 5 mg tablet 07-01 00:00: 00 Yes [id number] HIGH BLOOD PRESSURE 1 tablet ONCE DAILY 1 tablet ONCE DAILY (route: oral) Med Classific ation: Cardiovas cular Therapy Agents buspirone 30 mg tablet 07-01 00:00: 00 Yes [id number] DEPRESSION 1 tablet TWICE DAILY 1 tablet TWICE DAILY (route: oral) Med Classific ation: Central Nervous System Agents cyclobenzap rine 10 mg tablet 07-01 00:00: 00 Yes [id number] MUSCLE SPASMS 1 tablet 3 TIMES DAILY 1 tablet 3 TIMES DAILY (route: oral) Med Classific ation: Locomotor System lisinopril 20 mg tablet 07-01 00:00: 00 Yes [id number] HIGH BLOOD PRESSURE 1 tablet ONCE DAILY 1 tablet ONCE DAILY (route: oral) Med Classific ation: Cardiovas cular Therapy Agents meloxicam 15 mg tablet 07-01 00:00: 00 Yes [id number] JOINT PAIN 1 tablet ONCE DAILY 1 tablet ONCE DAILY (route: oral) Med Classific ation: Analgesic , Anti-infl ammatory or Antipyret ic Novolog FlexPen U-100 Insulin aspart 100 unit/mL (3 mL) subcutaneou s 07-01 00:00: 00 Yes [id number] DIABETES 70 unit TWICE DAILY 70 unit TWICE DAILY (route: subcutaneo us) Med Classific ation: Endocrine Ozempic 0.25 mg or 0.5 mg (2 mg/3 mL) subcutaneou s pen injector 07-01 00:00: 00 Yes [id number] DIABETES Per instruc tions WEEKLY Per instructio [...] PHYSICIAN OR 911] Future Scheduled Test [facility] TIFYING PHYSICIAN, ASSOCIATED PHYSICIAN, NPP OR [...] TIMES PER DAY.] Future Scheduled Test [facility] WILL INSTRUCT AND VERIFY APPROPRIATE STEPS [...] BY THE PHYSICIAN.] Future Scheduled Test [facility] NURSE WILL INSTRUCT PATIENT/CAREGIVER ON TYPE 2 [...] LOW BLOOD SUGAR.] Future Scheduled Test [facility] NURSE WILL ASSESS FOR COMPLICATIONS RELATED TO ANTICOAGULATION USE AND INSTRUCT PATIENT/CAREGIVER ABOUT PRECAUTIONS TO FOLLOW AND SIGNS/SYMPTOMS TO REPORT. [code = HOME [facility]ALTH NURSE WILL ASSESS FOR COMPLICATIONS RELATED TO ANTICOAGULATION USE AND INSTRUCT PATIENT/CAREGIVER ABOUT PRECAUTIONS TO FOLLOW AND SIGNS/SYMPTOMS TO REPORT.] Future Scheduled Test [facility] NUR[facility] WILL ASSESS FOR COMPLICATIONS RELATED TO [...] TEACH DEPRESSIVE SYMPTOMS.] Future Scheduled Test [facility] NURSE WILL INSTRUCT ABOUT COPD, APPROPRIATE BREATHING [...] WILL BE ESTABLISHED THAT MEETS ALL PATIENT'S PENITENTIARY NEEDS AND COUNTER SIGNED BY PHYSICIAN. Goal [...] End Date/Time Encounter Type Admission Type Attending [facility] Facility Care Department Encounter ID Discharge Date Discharge Status Discharge Condition Discharge Reason Percent Goals Met 2024-03-03 00:00:00 2024-08-29 00:00:00 [facility] [id number] 25.93
--- OUTSIDE RECORDS SUMMARY | 2024-08-01 14:29 | XMS_ITS | Clinical Summary ---
Author Organization Unknown Care Team Providers Care Hand Patcher Name Role Phone KIERA SELLERS, AB Unavailable [...] THROMBOSIS AND EMBOLISM Active 04-01 00:00: 00 HALFWAY (CURRENT) USE OF NON-STEROIDA L NON-INFLAM (NSAID) Active 04-01 00:00: 00 HALFWAY (CURRENT) USE OF ANTICOAGULAN TS Active 04-01 00:00: 00 HALFWAY (CURRENT) USE OF INSULIN Active 04-01 00:00: 00 R D INTERN (CURRENT) USE OF ORAL HYPOGLYCEMIC DRUGS Active [...] 80 mg tablet 2023-04 00:00: 00 Yes [id number] HIGH CHOLESTEROL 1 tablet AT BEDTIME 1 tablet AT BEDTIME (route: oral) Med Classific ation: Cardiovas cular Therapy Agents buspirone 10 mg tablet 2023-04 00:00: 00 06-29 23:59 :00 No [id number] MOOD 2 tablet TWICE DAILY 2 tablet TWICE DAILY (route: oral) Med Classific ation: Central Nervous System Agents Eliquis 5 mg tablet 2023-04 00:00: 00 Yes [id number] BLOOD CLOT PREVENTION 1 tablet TWICE DAILY 1 tablet TWICE DAILY (route: oral) Med Classific ation: Hematolog ical Agents insulin lispro (U-100) 100 unit/mL subcutaneou s pen 2023-04 00:00: 00 06-29 23:59 :00 No [id number] DIABETES MELLITUS 70 unit TWICE DAILY 70 unit TWICE DAILY (route: subcutaneo us) Med Classific ation: Endocrine lisinopril 10 mg tablet 2023-04 00:00: 00 06-29 23:59 :00 No [id number] HIGH BLOOD PRESSURE 1 tablet ONCE DAILY 1 tablet ONCE DAILY (route: oral) Med Classific ation: Cardiovas cular Therapy Agents magnesium 250 mg tablet 2023-04 00:00: 00 Yes [id number] SUPPLEMENT 1 tablet ONCE DAILY 1 tablet ONCE DAILY (route: oral) Med Classific ation: Electroly te Balance-N utritiona l Products metformin 1,000 mg tablet 2023-04 00:00: 00 Yes [id number] DIABETES MELLTUS 1 tablet TWICE DAILY 1 tablet TWICE DAILY (route: oral) Med Classific ation: Endocrine Nystop 100,000 unit/gram topical powder 2023-04 00:00: 00 Yes [id number] GAULDING Per instruc tions TWICE DAILY Per instructio ns TWICE DAILY (route: topical) Med Classific ation: Dermatolo gical paroxetine 20 mg tablet 2023-04 00:00: 00 Yes [id number] MOOD 1 tablet ONCE DAILY 1 tablet ONCE DAILY (route: oral) Med Classific ation: Central Nervous System Agents Pepcid 20 mg tablet 2023-04 00:00: 00 Yes [id number] HEART BURN 1 tablet ONCE DAILY 1 tablet ONCE DAILY (route: oral) Med Classific ation: Gastroint estinal Therapy Agents topiramate 25 mg tablet 2023-04 00:00: 00 Yes [id number] HEADACHES 4 tablet TWICE DAILY 4 tablet TWICE DAILY (route: oral) Med Classific ation: Central Nervous System Agents venlafaxine 37.5 mg tablet 2023-04 00:00: 00 Yes [id number] MOOD 1 tablet ONCE DAILY 1 tablet ONCE DAILY (route: oral) Med Classific ation: Central Nervous System Agents Vitamin D2 1,250 mcg (50,000 unit) capsule 2023-04 00:00: 00 Yes [id number] VITAMIN D DEFICIENCY 1 capsule ONCE DAILY 1 capsule ONCE DAILY (route: oral) Med Classific ation: Electroly te Balance-N utritiona l Products amlodipine 2.5 mg tablet 2-11 00:00: 00 06-29 23:59 :00 No [id number] HYPERTENSIO N 1 tablet ONCE DAILY 1 tablet ONCE DAILY (route: oral) Med Classific ation: Cardiovas cular Therapy Agents cephalexin 500 mg capsule 2-26 00:00: 00 06-03 23:59 :00 No [id number] LEG INFECTION 2 capsule 4 TIMES DAILY 2 capsule 4 TIMES DAILY (route: oral) Med Classific ation: Anti-Infe ctive Agents amlodipine 5 mg tablet 07-01 00:00: 00 Yes [id number] HIGH BLOOD PRESSURE 1 tablet ONCE DAILY 1 tablet ONCE DAILY (route: oral) Med Classific ation: Cardiovas cular Therapy Agents buspirone 30 mg tablet 07-01 00:00: 00 Yes [id number] DEPRESSION 1 tablet TWICE DAILY 1 tablet TWICE DAILY (route: oral) Med Classific ation: Central Nervous System Agents cyclobenzap rine 10 mg tablet 07-01 00:00: 00 Yes [id number] MUSCLE SPASMS 1 tablet 3 TIMES DAILY 1 tablet 3 TIMES DAILY (route: oral) Med Classific ation: Locomotor System lisinopril 20 mg tablet 07-01 00:00: 00 Yes [id number] HIGH BLOOD PRESSURE 1 tablet ONCE DAILY 1 tablet ONCE DAILY (route: oral) Med Classific ation: Cardiovas cular Therapy Agents meloxicam 15 mg tablet 07-01 00:00: 00 Yes [id number] JOINT PAIN 1 tablet ONCE DAILY 1 tablet ONCE DAILY (route: oral) Med Classific ation: Analgesic , Anti-infl ammatory or Antipyret ic Novolog FlexPen U-100 Insulin aspart 100 unit/mL (3 mL) subcutaneou s 07-01 00:00: 00 Yes [id number] DIABETES 70 unit TWICE DAILY 70 unit TWICE DAILY (route: subcutaneo us) Med Classific ation: Endocrine Ozempic 0.25 mg or 0.5 mg (2 mg/3 mL) subcutaneou s pen injector 07-01 00:00: 00 Yes [id number] DIABETES Per instruc tions WEEKLY Per instructio [...] PHYSICIAN OR 911] Future Scheduled Test [facility] TIFYING PHYSICIAN, ASSOCIATED PHYSICIAN, NPP OR [...] TIMES PER DAY.] Future Scheduled [facility] WILL INSTRUCT AND VERIFY APPROPRIATE [...] BY THE PHYSICIAN.] Future Scheduled [facility] WILL INSTRUCT PATIENT/CAREGIVER ON TYPE [...] LOW BLOOD SUGAR.] Future Scheduled Test [facility] WILL ASSESS FOR COMPLICATIONS RELATED TO ANTICOAGULATION USE AND INSTRUCT PATIENT/CAREGIVER ABOUT PRECAUTIONS TO FOLLOW AND SIGNS/SYMPTOMS TO REPORT. [code = HOME [facility]ALTH NURSE WILL ASSESS FOR COMPLICATIONS RELATED TO ANTICOAGULATION USE AND INSTRUCT PATIENT/CAREGIVER ABOUT PRECAUTIONS TO FOLLOW AND SIGNS/SYMPTOMS TO REPORT.] Future Scheduled Test [facility] WILL ASSESS FOR COMPLICATIONS RELATED [...] TEACH DEPRESSIVE SYMPTOMS.] Future Scheduled Test [facility] WILL INSTRUCT ABOUT COPD, APPROPRIATE [...] WILL BE ESTABLISHED THAT MEETS ALL PATIENT'S NURSING HOME NEEDS AND COUNTER SIGNED BY PHYSICIAN. Goal [...] End Date/Time Encounter Type Admission Type Attending [facility] Facility Care Department Encounter ID Discharge Date Discharge Status Discharge Condition Discharge Reason Percent Goals Met 2024-03-03 00:00:00 2024-08-29 00:00:00 [facility] [id number]
== END 2024-07-31 15:51 | disposition home or self-care (01) ==
PROVIDERS: Emergency Provider Emergency Medicine; PCP Family Medicine
DX: S09.90XA Unspecified injury of head, initial encounter (principal); Z79.01 Long term (current) use of anticoagulants; W19.XXXA Unspecified fall, initial encounter
CPT/HCPCS: 36415; 70450; 71045; 72125; 80053; 81003; 82550; 83735; 84484; 85025; 93005; 99284

== ENCOUNTER 2024-12-24 11:50 | Outpatient (NON) | payer MEDICARE, SELFPAY ==
[2024-12-24 12:06] LABS: Hematocrit 37.7 % (40.0-54.0); Hemoglobin 12.0 g/dL (14.0-18.0); Immature Granulocyte Percent A 0.5 % (0.0-0.0); Lymphocytes Absolute Auto 1.22 K/mm3 (1.10-4.50); Mean Corpuscular HGB Conc 31.8 g/dL (32-36); Mean Corpuscular Hemoglobin 30.2 pg (27.0-31.0); Mean Corpuscular Volume 94.7 fL (78.0-102.0); Nucleated Red Blood Cells Absolute Auto 0.00 K/mm3 (0.00-0.00); Nucleated Red Blood Cells Perc 0.0 % (0-0.0); Platelet Count Result 213 K/mm3 (150-420); Red Blood Count 3.98 M/mm3 (4.70-6.10); White Blood Count 6.0 K/mm3 (4.8-10.8)
[2024-12-24 12:21] LABS: Alanine Aminotransferase 14 U/L (6-50); Albumin Level 3.7 g/dL (3.5-5.1); Alkaline Phosphatase 62 U/L (38-126); Anion Gap 10 mmol/L (4-12); Aspartate Amino Transferase 17 U/L (17-59); Bilirubin,Total 0.3 mg/dL (0.2-1.3); Blood Urea Nitrogen 21 mg/dL (9-20); Calcium 9.1 mg/dL (8.4-10.2); Carbon Dioxide 22 mmol/L (22-30); Chloride 113 mmol/L (98-107); Estimated Glomerular Filt Rate 58; Glucose 74 mg/dL (65-110); Osmolality Calculated 302 mOsm/kg (285-295); Potassium 3.9 mmol/L (3.4-5.0); Sodium 145 mmol/L (137-145); Total Protein 7.6 g/dL (6.3-8.2)
== END 2024-12-24 11:51 | disposition home or self-care (01) ==
LOC: CHSLAB 11:52
PROVIDERS: PCP Family Medicine; Visit Provider Family Medicine
DX: E11.22 Type 2 diabetes mellitus with diabetic chronic kidney disease (principal)
CPT/HCPCS: 36415; 80053; 85025